=== PATIENT | female | born 1945 | race Caucasian/White ===

== ENCOUNTER 2016-07-12 12:50 | Inpatient (IN) | payer MEDICARE, OTHER ==
[~2016-07-12] VITALS: Ht 165.1 cm; Wt 83.0 kg
--- NOTE | 2016-07-12 13:00 | NUR ---
BPA FROM [facility]: POSSIBLE GI BLEED. SEND BY DR TIJERINA FOR EVAL. VENT/TRACH DEPENDENT. PT AOOX3. NOTED WITH GTUBE. NAD NOTED. NO ACTIVE BLEEDING NOTED. SEEN BY ANALYTICAL CONSULTANT FOR EVAL. SAFETY AND COMFORT MEASURES PROVIDED. WILL MONITOR.
[2016-07-12 13:08] LABS: BASOPHILS % (AUTO) 0.3 % (0.0-2.0); EOSINOPHILS # (AUTO) 0.2 /CMM (0.0-0.7); HEMATOCRIT 27 % (33-45); LYMPHOCYTES # (AUTO) 1.4 /CMM (0.8-4.8); LYMPHOCYTES % (AUTO) 16.4 % (20.0-44.0); MEAN CORPUSCULAR HEMOGLOBIN 30 PG (26.0-33.0); MEAN CORPUSCULAR HGB CONC 33 g/dl (31.0-36.0); MEAN CORPUSCULAR VOLUME 90 fL (82-100); MONOCYTES # (AUTO) 0.6 /CMM (0.1-1.30); MONOCYTES % (AUTO) 7.5 % (2.0-12.0); NEUTROPHILS # (AUTO) 6.1 /CMM (1.8-8.9); NEUTROPHILS % (AUTO) 73.8 % (43.0-81.0); PLATELET COUNT (AUTO) 235 /CMM (150-450); RDW COEFFICIENT OF VARIATION 17.9 (11.5-15.0); RED BLOOD CELL COUNT(AUTO) 3.05 MIL/uL (4.0-5.2); WHITE BLOOD COUNT (AUTO) 8.3 K/uL (4.3-11.0)
[2016-07-12 13:19] LABS: CALCIUM, SERUM 8.4 mg/dL (8.5-10.1); CREATININE 1.8 mg/dL (0.6-1.3); POTASSIUM 3.8 mmol/L (3.5-5.1)
[2016-07-12 13:21] VITALS: BP 109/54
[2016-07-12 13:22] LABS: INR 1.11 (0.87-1.13); PROTHROMBIN TIME 11.6 SECS (9.5-12.7)
--- NOTE | 2016-07-12 14:12 | NUR ---
PAGED INTERNAL CONTROLS ANALYST DR AL TIJERINA
[2016-07-12] MEDS ORDERED: PIPERACILLIN /TAZOBACTAM 3.375 G in IV D5W 50 ML IV ONE (15:00)
[2016-07-12] MEDS ORDERED: VANCOMYCIN 1 GM in IV D5W 250 ML IV ONE (15:00)
--- NOTE | 2016-07-12 15:03 | NUR ---
ARON KHAN ON THE PHONE WITH DR LORENA ENAMORADO
--- NOTE | 2016-07-12 15:45 | NUR ---
REPORT GIVEN TO VIVIEN GALLEGO FOR PORFIRIO
[2016-07-12] MEDS ORDERED: IV SET PRIMARY PUMP SET 1 EA INFUS.SET MC ONE (15:58)
[2016-07-12 16:00] VITALS: BP 150/67
[2016-07-12] MEDS ORDERED: NA P133E RC (16:22)
[2016-07-12] MEDS ORDERED: LOPE2TAB57 GT (16:22)
[2016-07-12] MEDS ORDERED: HYDR-4075 GT (16:22)
[2016-07-12] MEDS ORDERED: AMIO100T4 GT (16:22)
[2016-07-12] MEDS ORDERED: BUME1TAB4 GT (16:22)
[2016-07-12] MEDS ORDERED: BISA10SU8 RC (16:22)
[2016-07-12] MEDS ORDERED: CHOL4PAC2 GT (16:22)
[2016-07-12] MEDS ORDERED: LANS30CA56 GT (16:22)
[2016-07-12] MEDS ORDERED: METO25TA20 GT (16:22)
[2016-07-12] MEDS ORDERED: IPRA3AMP IH (16:22)
[2016-07-12] MEDS ORDERED: ISOS10TA2 GT (16:22)
[2016-07-12] MEDS ORDERED: LACT1TAB25 GT (16:22)
[2016-07-12] MEDS ORDERED: FERR-58 GT (16:22)
[2016-07-12] MEDS ORDERED: LINA5TAB GT (16:22)
[2016-07-12] MEDS ORDERED: ATOR40TA GT (16:22)
[2016-07-12] MEDS ORDERED: MAGN400O6 GT (16:34)
[2016-07-12] MEDS ORDERED: ENOX40DI SQ (16:34)
[2016-07-12] MEDS ORDERED: INSU100V11 SQ (16:34)
--- NOTE | 2016-07-12 16:35 | NUR ---
TIRE REBUILDER NOTES RECEIVED PT FROM E.R. STAFF, ACCOMPANIED BY RT, AWAKE, ALERT AND ORIENTED, NO COMPLAINT OF PAIN, VENT IN PLACE, NOT IN DISTRESS, ASSISTED TO BED, MADE COMFORTABLE, DENIES PAIN, GT IN PLACE, NO BLEEDING OR S/S OF INFECTION NOTED TO SITE, ADMISSION ORDERS NOTED AND CARRIED OUT, ROOM SET UP ORIENTATION PROVIDED TO PT, UNDERSTOOD INSTRUCTIONS, PM CARE RENDERED.
[2016-07-12] MEDS ORDERED: CLOP75TA2 GT (16:36)
[2016-07-12] MEDS ORDERED: ONDA-25 GT (16:36)
[2016-07-12] MEDS ORDERED: FOLI0.8T23 GT (16:40)
[2016-07-12] MEDS ORDERED: SERT25TA5 GT (16:40)
[2016-07-12] MEDS ORDERED: ACET325T53 GT (16:41)
[2016-07-12] MEDS ORDERED: DEXTROSE 50%-WATER 50 ML DISP.SYRIN IV PRN ×2 (18:30→19:30)
[2016-07-12] MEDS ORDERED: LOPERAMIDE HCL (2 MG CAP) 2 MG CAPSULE PO PRN (18:30)
[2016-07-12] MEDS ORDERED: MAGNESIUM HYDROXIDE 30 ML UDC GT PRN (18:30)
[2016-07-12] MEDS ORDERED: ACETAMINOPHEN 325 MG TABLET PO PRN (18:30)
[2016-07-12] MEDS ORDERED: NA PHOS,M-B/NA PHOS,DI-BA 1 EA ENEMA RC PRN (18:30)
[2016-07-12] MEDS ORDERED: BISACODYL SUPP (10 MG) 10 MG/SUPP.RECT SUPP.RECT RC PRN (18:30)
--- NOTE | 2016-07-12 18:52 | NUR ---
CASING CLEANER NOTES PT IN BED, RESTING, NOT IN PAIN OR DISTRESS, VENT IN PLACE, NO COUGHING OR CONGESTION, CALL LIGHT WITHIN REACH, KEPT COMFORTABLE AND LIFTS AND CRANES INSPECTOR BED.
[2016-07-12] MEDS ORDERED: ONDANSETRON 4 MG TAB.RAPDIS GT PRN (19:00)
[2016-07-12] MEDS ORDERED: Z GUARD REMEDY 4 OZ OINT TP PRN (19:00)
--- NOTE | 2016-07-12 19:10 | NUR ---
RN OPEN NOTES RECEIVED PATIENT AWAKE IN BED WITH AT BEDSIDE. A/O X3. NO SIGNS OF DISTRESS OR DISCOMFORT. ON MECHANICAL VENT WITH SETTINGS ORDERED. ON TELE MONITORING WITH SR W/ BBB HR 71 NOTED. GTUBE INTACT, NO SIGNS OF INFECTION OR BLEEDING. IV ACCESS IN R WRIST, PATENT AND INTACT. NO SIGNS OF REDNESS OR INFILTRATION. BED IN LOW LOCKED POSITION WITH SIDE RAILS X2. CALL LIGHT WITHIN REACH. WILL CONTINUE TO MONITOR. Addendum: 07/12/16 at 2053 by LOTUS CARUSO RN HAS F/C PATENT AND INTACT WITH CLEAR YELLOW FLUID NOTED.
[2016-07-12] MEDS ORDERED: INSULIN REGULAR, HUMAN 100 UNIT/ML 3 ML VIAL SQ PRN (19:30)
[2016-07-12] MEDS: ALBUTEROL FS 2.5 MG/3 ML VIAL.NEB NEB SCH (19:48)
[2016-07-12] MEDS: IPRATROPIUM NEB FS 0.5 MG/2.5 ML AMPUL.NEB NEB SCH (19:48)
[2016-07-12 20:00] VITALS: BP 119/69
[2016-07-12] MEDS ORDERED: ENOXAPARIN SODIUM 40 MG/0.4 ML DISP.SYRIN SQ SCH (21:00)
[2016-07-12] MEDS ORDERED: BLOOD SUGAR DIAGNOSTIC 1 EACH STRIP IN SCH (21:00)
[2016-07-12] MEDS: ATORVASTATIN 40 MG TABLET GT SCH (22:00)
[2016-07-12] MEDS: BLOOD SUGAR DIAGNOSTIC 1 EACH STRIP IN SCH (23:21)
[2016-07-13] VITALS (37 sets, daily range): BP systolic 82–155; BP diastolic 15–101
[2016-07-13] MEDS: IPRATROPIUM NEB FS 0.5 MG/2.5 ML AMPUL.NEB NEB SCH ×4 (01:14→20:07)
[2016-07-13] MEDS: ALBUTEROL FS 2.5 MG/3 ML VIAL.NEB NEB SCH ×4 (01:14→20:06)
--- NOTE | 2016-07-13 04:10 | NUR ---
RN NOTES RT IN ROOM TO EVALUATE PATIENT CONDITION. PATIENT PRESENTS WITH DE-SATURATION AND VERY DIAPHORETIC DESPITE SUCTIONING. BS CHECKED AND IS NOT HYPOGYLCEMIC BS 183. WILL CONTINUE TO MONITOR.
--- NOTE | 2016-07-13 04:36 | NUR ---
RN NOTES ELECTRONICS ASSEMBLER AND TESTER CALLED DUE TO UN-IMPROVED PATIENT CONDITION. PATIENT WAS HAVING LOW O2 SATURATION AND DIAPHORETIC.
[2016-07-13 04:51] LABS: ABG BASE EXCESS -5.9 mmol/L; ABG OXYGEN SATURATION 82.3 % (92.0-98.5); ABG PH 7.099 (7.350-7.450); ABG PO2 62.9 mmHg (75.0-100.0); AaDO2 90.2 mmHg; COHb 1.2 % (0.5-1.5); MetHb 0.8 % (0.0-1.5); O2Hb 80.7 % (94.0-97.0); PEEP,BG 5 cm H2O; SITE, ABG Right Radial; VENT MODE, BG SIMV4; VT, ABG 450 mL
--- NOTE | 2016-07-13 05:00 | NUR ---
RN NOTES RECEIVED REPORT FROM [facility] LASHONDA GAUTAM IN REGARDS TO THE PATIENT'S TRANSFER AND CONTINUITY OF CARE. PATIENT WAS A RAPID RESPONSE FROM [facility].
--- NOTE | 2016-07-13 05:02 | NUR ---
RN NOTES PATIENT TRANSFERRED TO ICU. GAVE REPORT TO NIDIA GALLEGO FOR PORFIRIO.
--- NOTE | 2016-07-13 05:05 | NUR ---
RN NOTES PT ARRIVED IN THE UNIT, NON-VERBAL, A/O X3, ABLE TO MOUTH WORDS. PT IS ON VENT, NOW WITH SETTINGS OF AC 18, TV 450, 100% FIO2, PEEP 5, SATURATING WELL. CURRENTLY STACH ON THE MONITOR, HR 110-120'S. PT HAS A SWARTZ INTACT. GTUBE IS CLAMPED. RIGHT WRIST 20G SL FLUSHED AND PATENT, NO S/S OF INFILTRATION/INFECTION, DRESSING CDI. SKIN CHECK DONE, PICS HAVE ALREADY BEEN TAKEN UPON ADMISSION IN 3WEST. BED LOW AND LOCKED, SIDERAILS UP, CALL LIGHT WITHIN REACH. WILL MONITOR
[2016-07-13] MEDS: BLOOD SUGAR DIAGNOSTIC 1 EACH STRIP IN SCH ×4 (05:42→23:35)
[2016-07-13] MEDS: INSULIN REGULAR, HUMAN 100 UNIT/ML 3 ML VIAL SQ PRN ×3 (05:44→18:04)
--- NOTE | 2016-07-13 06:30 | NUR ---
RN CLOSING NOTES PT REMAINS STABLE OF THE MOMENT. AM CARE PROVIDED. WILL ENDORSE CONTINUITY OF CARE TO AM RN
[2016-07-13] MEDS ORDERED: INSULIN LISPRO/ASPART 100 UNIT/ML CARTRIDGE SQ PRN (07:30)
[2016-07-13 08:00] LABS: BASOPHILS % (AUTO) 0.2 % (0.0-2.0); EOSINOPHILS % (AUTO) 0.1 % (0.0-6.0); HEMATOCRIT 36 % (33-45); HEMOGLOBIN 11.2 g/dL (11.5-14.8); LYMPHOCYTES % (AUTO) 8.9 % (20.0-44.0); MEAN CORPUSCULAR HEMOGLOBIN 29 PG (26.0-33.0); MEAN CORPUSCULAR HGB CONC 32 g/dl (31.0-36.0); MEAN CORPUSCULAR VOLUME 94 fL (82-100); MONOCYTES # (AUTO) 0.5 /CMM (0.1-1.30); MONOCYTES % (AUTO) 2.1 % (2.0-12.0); NEUTROPHILS % (AUTO) 88.7 % (43.0-81.0); PLATELET COUNT (AUTO) 376 /CMM (150-450); RDW COEFFICIENT OF VARIATION 18.9 (11.5-15.0); RED BLOOD CELL COUNT(AUTO) 3.81 MIL/uL (4.0-5.2); WHITE BLOOD COUNT (AUTO) 22.5 K/uL (4.3-11.0)
--- NOTE | 2016-07-13 08:00 | NUR ---
MULTI TOWNSHIP ASSESSOR NOTE: RECEIVED PATIENT IN BED, ALERT AND ORIENTED X2 NONVERBAL, ABLE TO MAKE NEEDS KNOWN. ON VENT VIA SHILEY 6XLT AC 18 [id number] 100% PEEP OF 5. PATIENT COMPLAINING OF TIGHTNESS IN NECK AREA, PATIENT TURNED AND REPOSITIONED FOR COMFORT. NOTED TO BE DIAPHORETIC, TACHYPNEIC AND TACHYCARDIC. TEMP NOTED TO BE 98.4, HR 92 SBP 130. GTUBE NOTED TO BE CLAMPED, PINK SECRETIONS NOTED. FLUSHED. SWARTZ DRAINING TO GRAVITY. PATIENT NOTED WITH SACRAL SKIN ISSUES, IV NOTED TO BE OUT, TIP INTACT, PRESSURE PLACED TO MAINTAIN BLEEDING. NEW IV PLACED IN RIGHT WRIST 22G HL. LABS DRAWN AT THIS TIME. NO DISTRESS NOTED. VS STABLE. SAFETY MAINTAINED, CALL LIGHT WITHIN REACH AND ONGOING MONITORING.
[2016-07-13 08:31] LABS: CALCIUM, SERUM 8.7 mg/dL (8.5-10.1); MAGNESIUM 1.5 mg/dL (1.8-2.4); POTASSIUM 3.4 mmol/L (3.5-5.1)
--- NOTE | 2016-07-13 08:49 | NUR ---
PER NURSE АНДРЕЙ CONSENT SIGN, NO BLOOD THINNERS WERE GIVEN. NURSE IS AWARE PROCEDURE WILL BE DONE IN AFTERNOON DUE TO BUSY SCHEDULE WITH ER AND A SCHEDULED PROCEDURE IN RAD DEPARTMENT
[2016-07-13] MEDS ORDERED: METOPROLOL TARTRATE 25 MG TABLET GT SCH (09:00)
[2016-07-13] MEDS ORDERED: ISOSORBIDE DINITRATE (10MG) 10 MG TABLET GT SCH (09:00)
--- NOTE | 2016-07-13 09:33 | NUR ---
WOUND CARE CONSULT: PATIENT SEEN AND LIMITED SKIN ASSESSMENT DONE. ACCORDING TO RT AND NURSING STAFF, PATIENT HAS HAD A RAPID RESPONSE THIS MORNING AND CANNOT BE TURNED AND REPOSITIONED AT THIS TIME DUE TO PATIENT STILL UNSTABLE. TRACH VENT DEPENDENT PATIENT, HAS GT AN F/C, INCONTINENT OF STOOLS, YADIEL 15, ON TAI ISOFLEX JOLANTA BED. SEE TODAY'S SKIN ASSESSMENT IN PCS ALONG WITH RECOMMENDATIONS. RECOMMEND MOISTURE PROTECTION WITH Z GUARD ORDERED. TURN AND REPOSITION EVERY 2 HRS PATIENT CONDITION PERMITS, OFFLOAD BOTH HEELS. ALL DISCUSSED WITH NURSING STAFF. WOUND NURSE WILL FOLLOW UP AT A LATER TIME WHEN PATIENT CONDITION PERMITS. MD IN AGREEMENT WITH PLAN OF CARE. Addendum: 07/13/16 at 0939 by NATAN SCHULTZ WNDNU Amended: Links added.
[2016-07-13 09:45] LABS: ABG OXYGEN SATURATION 89.7 % (92.0-98.5); ABG PH 7.303 (7.350-7.450); ABG PO2 62.4 mmHg (75.0-100.0); AaDO2 309.3 mmHg; COHb 0.1 % (0.5-1.5); MetHb 0.9 % (0.0-1.5); O2Hb 88.8 % (94.0-97.0); PEEP,BG 5 cm H2O; SITE, ABG Left Radial; VT, ABG 450 mL
[2016-07-13] MEDS ORDERED: Z GUARD REMEDY 2 OZ OINT TP PRN (10:00)
[2016-07-13] MEDS: LACTOBACILLUS RHAMNOSUS GG 1 EACH CAP.SPRINK GT SCH (10:01)
[2016-07-13] MEDS: SERTRALINE HCL 25 MG TABLET GT SCH (10:01)
[2016-07-13] MEDS: BUMETANIDE (1 MG) 1 MG TABLET GT SCH ×2 (10:02→17:58)
[2016-07-13] MEDS: FERROUS SULFATE (325 MG) 325 MG/TAB TABLET GT SCH (10:02)
[2016-07-13] MEDS: LINAGLIPTIN 5 MG TABLET GT SCH (10:02)
[2016-07-13] MEDS: VIT B CMPLX 3/FA/VIT C/BIOTIN 1 TAB TABLET GT SCH (10:03)
[2016-07-13] MEDS: AMIODARONE HCL 200 MG TABLET GT SCH (10:03)
[2016-07-13] MEDS: PANTOPRAZOLE 40 MG/PACK PACK GT SCH (10:03)
[2016-07-13] MEDS: CHOLESTYRAMINE/ASPARTAME 4 G/PKT PACKET GT SCH (10:03)
[2016-07-13] MEDS: hydrALAZINE HCL 10 MG TABLET GT SCH ×2 (10:04→13:23)
[2016-07-13] MEDS: Z GUARD REMEDY 2 OZ OINT TP SCH ×2 (10:04→17:58)
[2016-07-13] MEDS ORDERED: POTASSIUM CL. PREMIX PERIPHER. 50 ML IV SCH (10:30)
--- NOTE | 2016-07-13 10:30 | NUR ---
LEAVE COORDINATOR NOTE: PATIENT'S NOTED WITH SWARTZ FROM [facility], AT BEDSIDE STATES THAT SWARTZ IS FROM MANY MONTHS AGO, SWARTZ REMOVED, AREA CLEANED, ASEPTIC TECHNIQUE OBSERVED AND NEW SWARTZ INSERTED. PATIENT TOLERATED PROCEDURE WELL HOWEVER REQUIRES TIME TO REST DUE TO SOB. ONGOING MONITORING
[2016-07-13] MEDS ORDERED: IV SET PRIMARY PUMP SET 1 EA INFUS.SET MC ONE ×2 (10:34→11:09)
--- NOTE | 2016-07-13 10:57 | NUR ---
ROPEWALK ROPE MAKER NOTE: DR. PATTERSON AT BEDSIDE, RECEIVED ORDER FOR VANCOMYCIN 1G ONE TIME AND ZOSYN FOR PHARMACY TO DOSE. ORDERS VERIFIED AND WILL CARRY OUT. ONGOING MONITORING
[2016-07-13] MEDS ORDERED: Magnesium 1GM/D5W 100ML PREMIX 100 ML IV SCH (11:00)
[2016-07-13] MEDS ORDERED: SECONDARY IV SET 1 EA INFUS.SET MC ONE (11:10)
[2016-07-13] MEDS ORDERED: IV NS 0.9% 500 ML IV ONE (11:10)
[2016-07-13] MEDS ORDERED: ACETAMINOPHEN 650 MG/20.3 ML UDC PO PRN (11:30)
[2016-07-13] MEDS ORDERED: LOPERAMIDE HCL UDC(2 MG/10 ML) 2 MG/10 ML UDC GT PRN (11:30)
--- NOTE | 2016-07-13 12:00 | NUR ---
MILLER SUPERVISOR NOTE: MIDLINE PLACED IN LAC BY PICC LINE NURSE JOHNNY GALVAN. PATIENT TOLERATED PROCEDURE WELL. ONGOING MONITORING
[2016-07-13] MEDS: PIPERACILLIN /TAZOBACTAM 2.25 G in IV D5W 50 ML IV SCH ×3 (13:24→23:35)
[2016-07-13] MEDS ORDERED: VANCOMYCIN 1 GM in IV D5W 250 ML IV ONE (14:00)
--- NOTE | 2016-07-13 14:00 | NUR ---
DESIGNER ARCHITECT NOTE: RIGHT SIDED US GUIDED THORACENTESIS DONE AT BEDSIDE. 860ML REMOVED, PLUERAL FLUID SENT TO LAB FOR TESTING PER DR. PATTERSON'S ORDERS. PATIENT TOLERATED PROCEDURE WELL. ONGOING MONITORING.
[2016-07-13] MEDS ORDERED: IV NS 0.9% 500 ML BAG IV ONE (15:00)
--- NOTE | 2016-07-13 15:30 | NUR ---
RESEARCH PROJECT MANAGER NOTE: PATIENT SBP NOTED IN 80'S, DR. ENAMORADO MADE AWARE AND RECEIVED ORDERS FOR 500ML IVP BOLUS OF NS. BOLUS GIVEN. WILL CONTINUE TO MONITOR SBP. ONGOING MONITORING.
[2016-07-13] MEDS: CLOPIDOGREL BISULFATE 75 MG TABLET GT SCH (15:54)
--- NOTE | 2016-07-13 16:37 | NUR ---
ASSISTANT PRESSMAN NOTE: RECEIVED CRITICAL LAB CALL FOR TROPONIN OF 1.909, CALL MADE TO DR. ENAMORADO AND RECEIVED TELEPHONE ORDER TO CALL DR. GREGG FOR CONSULT. READ BACK AND VERIFIED, DR. GREGG'S OFFICE CALLED AND REQUEST MADE FOR CONSULT. ONGOING MONITORING.
[2016-07-13] MEDS ORDERED: FEE PK DOSING 1 MIN EA MC ONE (17:34)
--- NOTE | 2016-07-13 18:56 | NUR ---
MANAGER PEOPLE NOTE: PATIENT RESTING COMFORTABLY IN BED ALERT AND ORIENTED X 2. SR ON TELE MONITOR, ON VENT TOLERATING SETTINGS WELL. NO DISTRESS NOTED, DR. GREGG WAS AT BEDSIDE FOR CONSULT, ECHO DONE. GTUBE PATENT AND INTACT, CLAMPED. SWARTZ DRAINING MINIMAL URINE TO GRAVITY. IV'S PATENT AND INTACT. PATIENT NOTED WITH DIARRHEA, CLEANED AND TURNED AND REPOSITIONED AND EXTREMITIES OFFLOADED. SKIN CARE RENDERED. VS STABLE AT THIS TIME. PATIENT VERBALIZES THAT SHE WANTS WATER WHEN INFORMED THAT SHE IS NPO SHE STATES SHE WANTS TO , PATIENT INFORMED TO TALK TO FAMILY REGARDING DNR/DNI STATUS. ALL MEDS GIVEN ADMINISTERED, ALL NEEDS MET, SAFETY MAINTAINED. ONGOING MONITORING
--- NOTE | 2016-07-13 20:00 | NUR ---
MOSS GATHERER OPEN SKIN ON SACRUM NOTED , WOUND CARE CONSULTED AND PIC TAKEN.
--- NOTE | 2016-07-13 21:49 | NUR ---
RN NEW GRAD CALLED PHARMACIST JANA REGARDING HUMALOG/NOVALOG ORDER FORCLARIFICATIOON OF ORDER . PER PHARMACIST THIS INSULIN IS NOT NEEDED BECAUSE PT IS ALREADY ON REGULAR INSULIN . WILL DC INSULIN. LOVENOX 40MG RETURNED TO [facility] AND ORDER CHANGED BY PHARMACIST IN ORDER FOR [facility] TO DISPENSE CORRECT DOSE OF 30 MG.
[2016-07-13] MEDS: ATORVASTATIN 40 MG TABLET GT SCH (21:58)
[2016-07-13] MEDS: ENOXAPARIN SODIUM 30 MG/0.3 ML DISP.SYRIN SQ SCH (22:05)
[2016-07-14] VITALS (55 sets, daily range): BP systolic 91–123; BP diastolic 33–84
[2016-07-14] MEDS: ALBUTEROL FS 2.5 MG/3 ML VIAL.NEB NEB SCH ×4 (01:11→19:57)
[2016-07-14] MEDS: IPRATROPIUM NEB FS 0.5 MG/2.5 ML AMPUL.NEB NEB SCH ×4 (01:11→19:57)
[2016-07-14 05:22] LABS: CALCIUM, SERUM 8.7 mg/dL (8.5-10.1); CREATININE 1.8 mg/dL (0.6-1.3); MAGNESIUM 1.5 mg/dL (1.8-2.4); PHOSPHORUS 3.7 mg/dL (2.5-4.9); POTASSIUM 3.8 mmol/L (3.5-5.1)
[2016-07-14 05:47] LABS: BASOPHILS % (AUTO) 0.2 % (0.0-2.0); EOSINOPHILS # (AUTO) 0.1 /CMM (0.0-0.7); EOSINOPHILS % (AUTO) 0.4 % (0.0-6.0); HEMATOCRIT 26 % (33-45); HEMOGLOBIN 8.5 g/dL (11.5-14.8); LYMPHOCYTES # (AUTO) 1.6 /CMM (0.8-4.8); LYMPHOCYTES % (AUTO) 14.6 % (20.0-44.0); MEAN CORPUSCULAR HEMOGLOBIN 29 PG (26.0-33.0); MEAN CORPUSCULAR HGB CONC 32 g/dl (31.0-36.0); MEAN CORPUSCULAR VOLUME 90 fL (82-100); MONOCYTES # (AUTO) 0.7 /CMM (0.1-1.30); MONOCYTES % (AUTO) 6.6 % (2.0-12.0); NEUTROPHILS # (AUTO) 8.7 /CMM (1.8-8.9); NEUTROPHILS % (AUTO) 78.2 % (43.0-81.0); PLATELET COUNT (AUTO) 225 /CMM (150-450); RDW COEFFICIENT OF VARIATION 19.3 (11.5-15.0); RED BLOOD CELL COUNT(AUTO) 2.93 MIL/uL (4.0-5.2); WHITE BLOOD COUNT (AUTO) 11.2 K/uL (4.3-11.0)
[2016-07-14] MEDS: PIPERACILLIN /TAZOBACTAM 2.25 G in IV D5W 50 ML IV SCH ×4 (06:14→23:03)
[2016-07-14] MEDS: BLOOD SUGAR DIAGNOSTIC 1 EACH STRIP IN SCH ×4 (06:14→23:04)
--- NOTE | 2016-07-14 07:16 | NUR ---
YARD PERSON NOTES RECEIVED PATIENT AOX3 DANISH SPEAKING BUT ABLE TO UNDERSTAND YI , ABLE TO MAKE NEEDS KNOWN , NOT IN ACUTE DISTRESS , DENIES SOB AND DISCOMFORT AT THIS TIME , SPO2 OF 100% VIA MECHANICAL VENTILATOR SETTINGS ORDERED , TRACH OF SHILEY @ [address] SR 85 ON BEDSIDE MONITOR , GT PATENT AND INTACT NO BLEEDING NOTED CLAMPED , FC DRAINING VIA GRAVITY WITH CLEAR YELLOW URINE , ON [place] BED , IV OF R WRIST #22 AND R AC MIDLINE PATENT AND INTACT WITH N @ TKO , ALL NEED ATTENDED , BED ON LOW AND LOCKED POSITION , SIDE RAILS X2 CALL LIGHT WITHIN REACH HOB @ 35 , WILL CONTINUE TO MONITOR
--- NOTE | 2016-07-14 07:29 | NUR ---
WHARF BUILDER NO RESP DISTRESS THROUGHOUT THE NIGHT. LOW URINE OUTPUT NOTED. REPORT GIVEN TO AM NURSE
--- NOTE | 2016-07-14 07:39 | NUR ---
RT PT RECEIVED TRACHED WITH A SHILEY 6 XLT ON THE VENT WITH NOTED SETTINGS. PT IS AWAKE AND ALERT. VENT ALARMS ARE SET AND AUDIBLE WITH BVM BY BEDSIDE. AUTO TUNE UP MECHANIC CUFF PRESSURE NOTED. VENT IS PLUGGED INTO RED OUTLET. SX SMALL THICK YELLOW SECRETIONS. NO RESPIRATORY DISTRESS NOTED AT THIS TIME, WILL CONTINUE TO MONITOR. Addendum: 07/14/16 at 0953 by YOLANDA LAMA RT Amended: Links added.
--- NOTE | 2016-07-14 08:00 | NUR ---
WOUND CARE CONSULT FOLLOW UP FOR SKIN ASSESSMENT OF THE BACK WHICH WAS NOT PERFORMED YESTERDAY DUE TO PATIENT WAS UNSTABLE. SEE TODAY'S SKIN ASSESSMENT ALONG WITH RECOMMENDATIONS. CONTINUE SKIN PROTECTION AND PRESSURE PREVENTION MEASURES ORDERED. ALL DISCUSSED WITH NURSING STAFF. IN AGREEMENT WITH PLAN OF CARE. Addendum: 07/14/16 at 0802 by NATAN SCHULTZ WNDNU Amended: Links added.
[2016-07-14] MEDS: AMIODARONE HCL 200 MG TABLET GT SCH (08:24)
[2016-07-14] MEDS: SERTRALINE HCL 25 MG TABLET GT SCH (08:25)
[2016-07-14] MEDS: LACTOBACILLUS RHAMNOSUS GG 1 EACH CAP.SPRINK GT SCH (08:25)
[2016-07-14] MEDS: CHOLESTYRAMINE/ASPARTAME 4 G/PKT PACKET GT SCH (08:25)
[2016-07-14] MEDS: VIT B CMPLX 3/FA/VIT C/BIOTIN 1 TAB TABLET GT SCH (08:25)
[2016-07-14] MEDS: CLOPIDOGREL BISULFATE 75 MG TABLET GT SCH (08:25)
[2016-07-14] MEDS: BUMETANIDE (1 MG) 1 MG TABLET GT SCH ×2 (08:25→15:48)
[2016-07-14] MEDS: PANTOPRAZOLE 40 MG/PACK PACK GT SCH (08:25)
[2016-07-14] MEDS: FERROUS SULFATE (325 MG) 325 MG/TAB TABLET GT SCH (08:25)
[2016-07-14] MEDS: LINAGLIPTIN 5 MG TABLET GT SCH (08:26)
[2016-07-14] MEDS: HYDROGEL DRESSING 90 GM TUBE TP SCH (08:26)
[2016-07-14] MEDS: Z GUARD REMEDY 2 OZ OINT TP SCH ×2 (08:26→16:53)
[2016-07-14 09:10] LABS: ABG BASE EXCESS -2.5 mmol/L; ABG OXYGEN SATURATION 97.1 % (92.0-98.5); ABG PCO2 34.9 mmHg (35.0-45.0); ABG PH 7.412 (7.350-7.450); ABG PO2 105.3 mmHg (75.0-100.0); AaDO2 211.9 mmHg; COHb 0.8 % (0.5-1.5); MetHb 1.2 % (0.0-1.5); O2Hb 95.2 % (94.0-97.0); SITE, ABG Left Radial; VENT MODE, BG AC 18 450 50% +5
[2016-07-14] MEDS ORDERED: BUMETANIDE INJ 6 MG in IV NS 0.9% 36 ML IV ONE (11:00)
[2016-07-14] MEDS ORDERED: Magnesium 1GM/D5W 100ML PREMIX 100 ML IV SCH (11:20)
--- NOTE | 2016-07-14 11:30 | NUR ---
MACHINE ADJUSTER LEADER CASE TRIM NOTES DR ENAMORADO AT BEDSIDE , NOTIFIED PT OFF PRESSORS WITH STABLE BP OF 105/55 , TOLERATING CURRENT VENTILATOR SETTINGS WITH SPO2 OF 100% , URINE OUTPUT LAST NIGHT FOR 12 HOURS IS 250 ML , PENDING TRORACENTESIS OF LEFT LUNG PT RECEIVED PLAVIX 75MG THIS AM , AWARE , .
[2016-07-14] MEDS ORDERED: IV SET PRIMARY PUMP SET 1 EA INFUS.SET MC ONE ×2 (11:32→20:33)
--- NOTE | 2016-07-14 11:54 | NUR ---
DRILL SHARPENER NOTES DR WALLACE AT BEDSIDE , NOTIFIED PT TOLERATING VENT SETTINGS ORDERED ,DISCUSSED AM LABS , CHEST XRAY ,AND ABG , AWARE , THORACENTESIS OF LEFT LUNG HELD PT RECEIVED PLAVIX 25MG THIS MORNING , AWARE
[2016-07-14] MEDS: ACETYLCYSTEINE 10% SOLN 400 MG/4 ML VIAL NEB SCH ×2 (13:07→19:57)
--- NOTE | 2016-07-14 14:51 | NUR ---
ULTRASOUND GUIDED THORACENTESIS ON HOLD DUE TO PATIENT RECEIVED PLAVIX THIS MORNING
--- NOTE | 2016-07-14 15:48 | NUR ---
SPEECH PATHOLOGIST NOTES BUMEX 1MG NON ADMIN , PT IS ON BUMEX DRIP @ 10ML/HR .
[2016-07-14] MEDS ORDERED: RENAL NOVASOURCE 1,000 ML BOTTLE GT PRN ×2 (16:00)
[2016-07-14] MEDS ORDERED: SECONDARY IV SET 1 EA INFUS.SET MC ONE (16:25)
[2016-07-14] MEDS: VANCOMYCIN 0.75 GM in IV D5W 250 ML IV SCH (16:53)
[2016-07-14] MEDS: GLYTROL 1,000 ML BAG GT PRN (16:53)
--- NOTE | 2016-07-14 17:56 | NUR ---
SINGH GALLEGO IS AWARE PROCEDURE CAN NOT BE DONE WITH IN 5 DAYS OF GIVING PLAVIX. PER DR. BRIZUELA OK TO BE DONE EARLIEST Sunday07/17/16 OR UNTIL Sunday07/19/16
[2016-07-14] MEDS: INSULIN REGULAR, HUMAN 100 UNIT/ML 3 ML VIAL SQ PRN ×2 (18:42→23:03)
--- NOTE | 2016-07-14 19:30 | NUR ---
RN:ICU: PT RECEIVED IN BED ON VENT. PT ALERT AND ABLE TO FOLLOW COMMANDS. PT WAS TO RECEIVE LEFT SIDED THORACENTESIS FOR PLEURAL EFFUSION BUT RECEIVED PLAVIX SO PROCEDURE WAS RESCHEDULED TO AM. PT TOLERATING TF. NO ACUTE DISTRESS NOTED. VSS. WILL CONTINUE TO MONITOR CLOSELY.
[2016-07-14] MEDS ORDERED: IV NS 0.9% 250 ML IV ONE (20:34)
[2016-07-14] MEDS: ENOXAPARIN SODIUM 30 MG/0.3 ML DISP.SYRIN SQ SCH (20:48)
[2016-07-14] MEDS: ATORVASTATIN 40 MG TABLET GT SCH (21:04)
[2016-07-15] VITALS (55 sets, daily range): BP systolic 87–133; BP diastolic 36–85
[2016-07-15] MEDS: ALBUTEROL FS 2.5 MG/3 ML VIAL.NEB NEB SCH ×4 (01:01→19:58)
[2016-07-15] MEDS: ACETYLCYSTEINE 10% SOLN 400 MG/4 ML VIAL NEB SCH ×4 (01:01→19:58)
[2016-07-15] MEDS: IPRATROPIUM NEB FS 0.5 MG/2.5 ML AMPUL.NEB NEB SCH ×4 (01:01→19:58)
--- NOTE | 2016-07-15 01:44 | NUR ---
RN:ICU: PT USING CALL LIGHT TO CALL NURSE COUNTLESS TIMES PER HOUR, REQUESTING ICE AND WATER. PT EDUCATED REGARDING IMPORTANCE TO LIMIT PO INTAKE DUE TO RISK FOR ASPIRATION AND FLUID OVERLOAD. ATTEMPTED TO PROVIDE PT WITH ORAL SWABS TO SATIATE HER THIRST AND LIMIT ABOVE RISKS, BUT PATIENT CONTINUES TO CALL FREQUENTLY AND REQUESTS MORE ICE. ATTEMPTED TO PERFORM OTHER TASKS SUCH REPOSITIONING AND SUCTIONING TO INCREASE PATIENTS COMFORT AND MINIMIZE ANXIETY BUT PATIENT STILL CALLS NURSE FREQUENTLY. ASPIRATION AND FALL PRECAUTIONS IN PLACE. VSS. WILL CONTINUE TO MONITOR CLOSELY.
[2016-07-15 04:39] LABS: BASOPHILS % (AUTO) 0.3 % (0.0-2.0); EOSINOPHILS # (AUTO) 0.2 /CMM (0.0-0.7); EOSINOPHILS % (AUTO) 1.3 % (0.0-6.0); HEMATOCRIT 27 % (33-45); HEMOGLOBIN 8.6 g/dL (11.5-14.8); LYMPHOCYTES # (AUTO) 1.7 /CMM (0.8-4.8); LYMPHOCYTES % (AUTO) 14.3 % (20.0-44.0); MEAN CORPUSCULAR HEMOGLOBIN 29 PG (26.0-33.0); MEAN CORPUSCULAR HGB CONC 32 g/dl (31.0-36.0); MEAN CORPUSCULAR VOLUME 90 fL (82-100); MONOCYTES # (AUTO) 0.9 /CMM (0.1-1.30); MONOCYTES % (AUTO) 7.6 % (2.0-12.0); NEUTROPHILS # (AUTO) 9.1 /CMM (1.8-8.9); NEUTROPHILS % (AUTO) 76.5 % (43.0-81.0); PLATELET COUNT (AUTO) 219 /CMM (150-450); RDW COEFFICIENT OF VARIATION 19.4 (11.5-15.0); RED BLOOD CELL COUNT(AUTO) 2.98 MIL/uL (4.0-5.2); WHITE BLOOD COUNT (AUTO) 11.9 K/uL (4.3-11.0)
[2016-07-15 05:06] LABS: CALCIUM, SERUM 8.4 mg/dL (8.5-10.1); CREATININE 1.9 mg/dL (0.6-1.3); MAGNESIUM 1.3 mg/dL (1.8-2.4); PHOSPHORUS 2.6 mg/dL (2.5-4.9); POTASSIUM 3.2 mmol/L (3.5-5.1)
[2016-07-15] MEDS: PIPERACILLIN /TAZOBACTAM 2.25 G in IV D5W 50 ML IV SCH ×4 (05:06→23:22)
[2016-07-15] MEDS: BLOOD SUGAR DIAGNOSTIC 1 EACH STRIP IN SCH ×4 (05:08→23:21)
[2016-07-15] MEDS: INSULIN REGULAR, HUMAN 100 UNIT/ML 3 ML VIAL SQ PRN ×3 (05:08→17:17)
--- NOTE | 2016-07-15 07:11 | NUR ---
COMMUNITY RESOURCE OFFICER NOTES RECEIVED PATIENT AOX2-3 SPANISH SPEAKING BUT ABLE TO UNDERSTAND [place] , ABLE TO MAKE NEEDS KNOWN , NOT IN ACUTE DISTRESS , DENIES SOB AND DISCOMFORT AT THIS TIME , SPO2 OF 100% VIA MECHANICAL VENTILATOR SETTINGS ORDERED , TRACH OF SHILEY @ [address] SR 75 ON BEDSIDE MONITOR , GT PATENT AND INTACT NO BLEEDING NOTED , GT FEEDING OF GLYTROL @ 40ML/HR TOLERATING WELL WITH NO RESIDUALS NOTED , FC DRAINING VIA GRAVITY WITH CLEAR YELLOW URINE , ON [place] BED , IV OF R AC MIDLINE PATENT AND INTACT WITH NS @ TKO , ALL NEED ATTENDED , BED ON LOW AND LOCKED POSITION , SIDE RAILS X2 CALL LIGHT WITHIN REACH HOB @ 35 , WILL CONTINUE TO MONITOR
[2016-07-15] MEDS: CLOPIDOGREL BISULFATE 75 MG TABLET GT SCH (08:30)
--- NOTE | 2016-07-15 08:30 | NUR ---
SUBWAY REPAIR SUPERVISOR NOTES PLAVIX 75MG HELD FOR POSSIBLE THORACENTESIS
[2016-07-15] MEDS: SERTRALINE HCL 25 MG TABLET GT SCH (08:32)
[2016-07-15] MEDS: BUMETANIDE (1 MG) 1 MG TABLET GT SCH ×2 (08:32→17:18)
[2016-07-15] MEDS: CHOLESTYRAMINE/ASPARTAME 4 G/PKT PACKET GT SCH (08:32)
[2016-07-15] MEDS: VIT B CMPLX 3/FA/VIT C/BIOTIN 1 TAB TABLET GT SCH (08:32)
[2016-07-15] MEDS: FERROUS SULFATE (325 MG) 325 MG/TAB TABLET GT SCH (08:32)
[2016-07-15] MEDS: HYDROGEL DRESSING 90 GM TUBE TP SCH (08:33)
[2016-07-15] MEDS: AMIODARONE HCL 200 MG TABLET GT SCH (08:33)
[2016-07-15] MEDS: LINAGLIPTIN 5 MG TABLET GT SCH (08:33)
[2016-07-15] MEDS: LACTOBACILLUS RHAMNOSUS GG 1 EACH CAP.SPRINK GT SCH (08:33)
[2016-07-15] MEDS: PANTOPRAZOLE 40 MG/PACK PACK GT SCH (08:33)
[2016-07-15] MEDS: Z GUARD REMEDY 2 OZ OINT TP SCH ×2 (08:33→17:18)
--- NOTE | 2016-07-15 09:30 | NUR ---
SERVER SECURITY ADMINISTRATOR NOTES DR HYLTON AT BEDSIDE , NOTIFIED PT STABLE AT THIS TIME SR 78 ON BEDSIDE MONITOR WITH STABLE BP , AFEBRILE , DISCUSSED AM LABS , , TOLERATING CURRENT VENTILATOR SETTINGS WITH NO SIGNS OF DISTRESS , AUSCULTATED CRACKLES THROUGHOUT , S/P BUMEX DRIP TOTAL OF 6MG YESTERDAY , URINE OUTPUT TOTAL OF 400ML FOR 3 HOURS , TOLERATING GT FEEDING , PENDING THORACENTESIS OF THE LEFT LUNG PT IS ON ANTI COAGULATIONS , DISCUSSED CHEST XRAY RESULT , AWARE
[2016-07-15] MEDS ORDERED: IV SET PRIMARY PUMP SET 1 EA INFUS.SET MC ONE (10:22)
[2016-07-15] MEDS: POTASSIUM CL. PREMIX PERIPHER. 50 ML IV SCH ×2 (10:26→11:37)
[2016-07-15] MEDS ORDERED: Magnesium 1GM/D5W 100ML PREMIX 100 ML IV SCH (10:30)
--- NOTE | 2016-07-15 14:14 | NUR ---
ASSISTANT COOK NOTES DR TRUONG AT BEDSIDE , NOTIFIED PT STABLE AT THIS TIME , NOT IN ACUTE DISTRESS , TOLERATING CURRENT VENTILATOR SETTINGS , TOLERATING GT FEEDINGS , PENDING LEFT SIDED THORACENTESIS PT IS ON ANTICOAGULANTS , NOTIFIED PLAVIX 75MG IS HELD THIS MORNING FOR THORACENTESIS PLAN , PER MD OK TO HOLD PLAVIX TEMPORARY , WILL DIURESE PT TODAY AND RE EVALUATE CHEST XRAY PER MD , AFEBRILE , BP 101/55 , SR 75 ON BEDSIDE MONITOR , MD AWARE
--- NOTE | 2016-07-15 14:15 | NUR ---
ENFORCEMENT OFFICER NOTES DR VARGHESE AT BEDSIDE , NOTIFIED PT IS TOLERATING VENTILATOR SETTINGS ORDERED WITH SPO2 OF 100% WITH NO DISTRESS , NOTED CRACKLES VIA AUSCULTATION THROUGHOUT LUNG KEY , URINE OUTPUT OF 300ML CLEAR YELLOW URINE SINCE 0700 , S/P BUMEX OF 6MG YESTERDAY , PENDING L SIDED GUIDED THORACENTESIS PT IS ON ANTICOAGULANTS , DISCUSSED CHEST XRAY RESULT AND LABS , , MD AWARE ORDERED SPUTUM CULTURE ,
[2016-07-15] MEDS ORDERED: BUMETANIDE INJ 0.25 MG/ML VIAL IV ONE (14:30)
[2016-07-15] MEDS ORDERED: SECONDARY IV SET 1 EA INFUS.SET MC ONE (14:52)
[2016-07-15] MEDS: VANCOMYCIN 0.75 GM in IV D5W 250 ML IV SCH (15:00)
[2016-07-15] MEDS: GLYTROL 1,000 ML BAG GT PRN (17:10)
--- NOTE | 2016-07-15 20:00 | NUR ---
SOFTWARE DEVELOPMENT SPECIALIST: RECEIVED PATIENT AOX2-3 WELSH SPEAKING BUT ABLE TO UNDERSTAND [place] , ABLE TO MAKE NEEDS KNOWN , NOT IN ACUTE DISTRESS , DENIES SOB AND DISCOMFORT AT THIS TIME , SPO2 OF 100% VIA MECHANICAL VENTILATOR SETTINGS ORDERED , TRACH OF SHILEY @ [address] SR ON BEDSIDE MONITOR , GT PATENT AND INTACT NO BLEEDING NOTED , GT FEEDING OF GLYTROL @ 40ML/HR TOLERATING WELL WITH NO RESIDUALS NOTED , FC DRAINING VIA GRAVITY WITH CLEAR YELLOW URINE , ON BELLE BED , IV OF R AC MIDLINE PATENT AND INTACT WITH NS @ TKO , ALL NEED ATTENDED , BED ON LOW AND LOCKED POSITION , SIDE RAILS X2 CALL LIGHT WITHIN REACH HOB KEEP MONITOR....
[2016-07-15] MEDS ORDERED: NOREPINEPHRINE 16 MG in IV D5W 500 ML IV PRN (20:30)
[2016-07-15] MEDS: ATORVASTATIN 40 MG TABLET GT SCH (21:23)
[2016-07-15] MEDS: ENOXAPARIN SODIUM 30 MG/0.3 ML DISP.SYRIN SQ SCH (21:23)
[2016-07-15] MEDS ORDERED: IV NS 0.9% 250 ML IV ONE (23:11)
[2016-07-16] VITALS (31 sets, daily range): BP systolic 92–134; BP diastolic 30–74
[2016-07-16] MEDS: ALBUTEROL FS 2.5 MG/3 ML VIAL.NEB NEB SCH ×4 (01:10→20:20)
[2016-07-16] MEDS: ACETYLCYSTEINE 10% SOLN 400 MG/4 ML VIAL NEB SCH ×4 (01:10→20:20)
[2016-07-16] MEDS: IPRATROPIUM NEB FS 0.5 MG/2.5 ML AMPUL.NEB NEB SCH ×4 (01:30→20:20)
[2016-07-16] MEDS: BLOOD SUGAR DIAGNOSTIC 1 EACH STRIP IN SCH ×3 (04:45→17:40)
[2016-07-16] MEDS: INSULIN REGULAR, HUMAN 100 UNIT/ML 3 ML VIAL SQ PRN ×3 (04:49→17:42)
[2016-07-16 05:02] LABS: BASOPHILS % (AUTO) 0.4 % (0.0-2.0); EOSINOPHILS # (AUTO) 0.3 /CMM (0.0-0.7); EOSINOPHILS % (AUTO) 2.6 % (0.0-6.0); HEMATOCRIT 25 % (33-45); HEMOGLOBIN 8.2 g/dL (11.5-14.8); LYMPHOCYTES # (AUTO) 1.9 /CMM (0.8-4.8); LYMPHOCYTES % (AUTO) 19.2 % (20.0-44.0); MEAN CORPUSCULAR HEMOGLOBIN 29 PG (26.0-33.0); MEAN CORPUSCULAR HGB CONC 32 g/dl (31.0-36.0); MEAN CORPUSCULAR VOLUME 90 fL (82-100); MONOCYTES # (AUTO) 0.7 /CMM (0.1-1.30); MONOCYTES % (AUTO) 7.5 % (2.0-12.0); NEUTROPHILS # (AUTO) 6.9 /CMM (1.8-8.9); NEUTROPHILS % (AUTO) 70.3 % (43.0-81.0); PLATELET COUNT (AUTO) 201 /CMM (150-450); RDW COEFFICIENT OF VARIATION 19.1 (11.5-15.0); RED BLOOD CELL COUNT(AUTO) 2.83 MIL/uL (4.0-5.2); WHITE BLOOD COUNT (AUTO) 9.8 K/uL (4.3-11.0)
[2016-07-16] MEDS: PIPERACILLIN /TAZOBACTAM 2.25 G in IV D5W 50 ML IV SCH ×3 (05:11→17:37)
[2016-07-16 05:12] LABS: ALBUMIN 2.2 g/dL (3.4-5.0); BILIRUBIN,TOTAL 0.5 mg/dL (0.2-1.0); CALCIUM, SERUM 8.2 mg/dL (8.5-10.1); CREATININE 1.8 mg/dL (0.6-1.3); MAGNESIUM 1.5 mg/dL (1.8-2.4); PHOSPHORUS 2.8 mg/dL (2.5-4.9); POTASSIUM 3.2 mmol/L (3.5-5.1)
--- NOTE | 2016-07-16 08:00 | NUR ---
MULTIFOLD OPERATOR; ASSESSMENT RECEIVED PT VENTED VIA TRACH SEE FLOW SHEET FOR VENT SETTINGS. PT IS AWAKE AND ORIENTED RAFAEL TO MOUTH NEEDS. PT DENIES ANY PAIN AT THIS TIME. SWARTZ CATH INTACT DRAINING TO GRAVITY CLEAR YELLOW URINE. NO ACUTE DISTRESS NOTED. WILL CONTINUE WITH PLAN OF CARE.
[2016-07-16] MEDS: FERROUS SULFATE (325 MG) 325 MG/TAB TABLET GT SCH (08:17)
[2016-07-16] MEDS: LINAGLIPTIN 5 MG TABLET GT SCH (08:17)
[2016-07-16] MEDS: BUMETANIDE (1 MG) 1 MG TABLET GT SCH ×2 (08:17→17:37)
[2016-07-16] MEDS: LACTOBACILLUS RHAMNOSUS GG 1 EACH CAP.SPRINK GT SCH (08:17)
[2016-07-16] MEDS: CLOPIDOGREL BISULFATE 75 MG TABLET GT SCH (08:17)
[2016-07-16] MEDS: PANTOPRAZOLE 40 MG/PACK PACK GT SCH (08:17)
[2016-07-16] MEDS: SERTRALINE HCL 25 MG TABLET GT SCH (08:17)
[2016-07-16] MEDS: HYDROGEL DRESSING 90 GM TUBE TP SCH (08:18)
[2016-07-16] MEDS: VIT B CMPLX 3/FA/VIT C/BIOTIN 1 TAB TABLET GT SCH (08:18)
[2016-07-16] MEDS: CHOLESTYRAMINE/ASPARTAME 4 G/PKT PACKET GT SCH (08:18)
[2016-07-16] MEDS: AMIODARONE HCL 200 MG TABLET GT SCH (08:18)
[2016-07-16] MEDS: Z GUARD REMEDY 2 OZ OINT TP SCH ×2 (08:19→17:44)
[2016-07-16 08:57] LABS: ABG BASE EXCESS 1.9 mmol/L; ABG OXYGEN SATURATION 96.9 % (92.0-98.5); ABG PCO2 39.7 mmHg (35.0-45.0); ABG PH 7.437 (7.350-7.450); ABG PO2 102.6 mmHg (75.0-100.0); AaDO2 136.9 mmHg; COHb 0.3 % (0.5-1.5); MetHb 1.1 % (0.0-1.5); O2Hb 95.5 % (94.0-97.0); PEEP,BG 5 cm H2O; SITE, ABG Right Radial; VENT MODE, BG A/C; VT, ABG 450 mL
[2016-07-16] MEDS ORDERED: Magnesium 1GM/D5W 100ML PREMIX 100 ML IV SCH (10:00)
[2016-07-16] MEDS ORDERED: IV SET PRIMARY PUMP SET 1 EA INFUS.SET MC ONE (10:10)
--- NOTE | 2016-07-16 10:15 | NUR ---
DECKER OPERATOR; CARDIO DR. AGUILA AT BEDSIDE UPDATE WAS GIVEN. DISCUSSED REGARDING PT ON PLAVIX DAILY WITH LOW H/H AND NEED FOR THORACENTESIS. MD REVIEWED MEDICATIONS ORDERED TO D/C PLAVIX. ORDERS GIVEN TO TRANSFER PT TO [facility].
[2016-07-16] MEDS: POTASSIUM CL. PREMIX PERIPHER. 50 ML IV SCH ×2 (10:22→11:06)
--- NOTE | 2016-07-16 11:50 | NUR ---
PRESS CLEANER; TRANSFER TRANSFER PT TO [facility] TO ROOM 102 VIA BED WITH ACLS PROTOCOL. PT TOLERATED TRANSFER. BEDSIDE REPORT GIVEN TO АНДРЕЙ Wilson TO CONTINUE WITH POC.
--- NOTE | 2016-07-16 12:00 | NUR ---
[facility] RN NOTE: RECEIVED PATIENT TRANSFERED FROM ICU VIA BED. ALERT AND ORIENTED X3, NONVERBAL HOWEVER ABLE TO MOUTH WORDS. PATIENT NOTED WITH TRACH DANIELLEY 6XLT ON LAURIE T AC 18 TV 450 FIO2 40% PEEP OF 5, NO RESPIRATORY DISTRESS NOTED. SR WITH BBB ON MONITOR. GTUBE NOTED, SITE CLEAN DRY AND DRESSING INTACT RUNNING GLYTROL AT 40ML/HR NO RESIDUAL NOTED. SWARTZ CATHETER DRAINING CLEAR YELLOW URINE TO GRAVITY. LAC MIDLINE NOTED PATENT AND INTACT. VS STABLE AT THIS TIME. PATIENT IN STABLE CONDITION, ORIENTED TO ROOM AND UNIT. SAFETY MEASURES OBSERVED. CALL LIGHT PLACED WITHIN REACH. ONGOING MONITORING.
[2016-07-16] MEDS: VANCOMYCIN 0.75 GM in IV D5W 250 ML IV SCH (16:00)
[2016-07-16] MEDS: GLYTROL 1,000 ML BAG GT PRN (17:36)
--- NOTE | 2016-07-16 18:55 | NUR ---
TA[facility] RN NOTE: PATIENT RESTING COMFORTABLY IN BED, NO DISTRESS NOTED. TOLERATING VENT, TOLERATING GTUBE FEEDING. SWARTZ DRAINING TO GRAVITY. PATIENT TURNED AND REPOSITIONED AND KEPT CLEAN AND DRY. ALL MEDS ADMINISTERED ORDERED AND NEEDS MET. VSS. WILL ENDORSE FOR CONTINUITY OF CARE.
--- NOTE | 2016-07-16 20:00 | NUR ---
TAYLOR RN NOTE: RECEIVED PATIENT IN BED. ALERT AND ORIENTED X3, NONVERBAL HOWEVER ABLE TO MOUTH WORDS. PATIENT NOTED WITH TRACH SHILEY 6XLT ON VENT AC 18 TV 450 FIO2 40% PEEP OF 5, NO RESPIRATORY DISTRESS NOTED. SR WITH BBB ON MONITOR. GTUBE NOTED, SITE CLEAN DRY AND DRESSING INTACT RUNNING GLYTROL AT 40ML/HR NO RESIDUAL NOTED. SWARTZ CATHETER DRAINING CLEAR YELLOW URINE TO GRAVITY. LAC MIDLINE NOTED PATENT AND INTACT. VS STABLE AT THIS TIME. PATIENT IN STABLE CONDITION, ORIENTED TO ROOM AND UNIT. SAFETY MEASURES OBSERVED. CALL LIGHT PLACED WITHIN REACH. ONGOING MONITORING.
[2016-07-16] MEDS: ENOXAPARIN SODIUM 30 MG/0.3 ML DISP.SYRIN SQ SCH (20:21)
[2016-07-16] MEDS: ATORVASTATIN 40 MG TABLET GT SCH (22:22)
[2016-07-17] VITALS: BP 120/52
[2016-07-17] MEDS: PIPERACILLIN /TAZOBACTAM 2.25 G in IV D5W 50 ML IV SCH ×5 (00:10→23:46)
[2016-07-17] MEDS: BLOOD SUGAR DIAGNOSTIC 1 EACH STRIP IN SCH ×5 (00:11→23:21)
[2016-07-17] MEDS: INSULIN REGULAR, HUMAN 100 UNIT/ML 3 ML VIAL SQ PRN ×4 (00:18→17:53)
[2016-07-17] MEDS: ACETYLCYSTEINE 10% SOLN 400 MG/4 ML VIAL NEB SCH ×4 (01:52→19:55)
[2016-07-17] MEDS: ALBUTEROL FS 2.5 MG/3 ML VIAL.NEB NEB SCH ×4 (01:52→19:55)
[2016-07-17] MEDS: IPRATROPIUM NEB FS 0.5 MG/2.5 ML AMPUL.NEB NEB SCH ×4 (01:52→19:56)
[2016-07-17 04:00] VITALS: BP 121/56
[2016-07-17 06:03] LABS: BASOPHILS % (AUTO) 0.4 % (0.0-2.0); EOSINOPHILS # (AUTO) 0.3 /CMM (0.0-0.7); HEMATOCRIT 27 % (33-45); HEMOGLOBIN 8.8 g/dL (11.5-14.8); LYMPHOCYTES # (AUTO) 1.5 /CMM (0.8-4.8); LYMPHOCYTES % (AUTO) 16.5 % (20.0-44.0); MEAN CORPUSCULAR HEMOGLOBIN 29 PG (26.0-33.0); MEAN CORPUSCULAR HGB CONC 32 g/dl (31.0-36.0); MEAN CORPUSCULAR VOLUME 90 fL (82-100); MONOCYTES # (AUTO) 0.7 /CMM (0.1-1.30); MONOCYTES % (AUTO) 7.4 % (2.0-12.0); NEUTROPHILS # (AUTO) 6.7 /CMM (1.8-8.9); NEUTROPHILS % (AUTO) 72.7 % (43.0-81.0); PLATELET COUNT (AUTO) 213 /CMM (150-450); RDW COEFFICIENT OF VARIATION 19.1 (11.5-15.0); RED BLOOD CELL COUNT(AUTO) 3.03 MIL/uL (4.0-5.2); WHITE BLOOD COUNT (AUTO) 9.2 K/uL (4.3-11.0)
[2016-07-17 06:18] LABS: ALBUMIN 2.3 g/dL (3.4-5.0); BILIRUBIN,TOTAL 0.4 mg/dL (0.2-1.0); CALCIUM, SERUM 8.6 mg/dL (8.5-10.1); MAGNESIUM 1.7 mg/dL (1.8-2.4); PHOSPHORUS 3.1 mg/dL (2.5-4.9); POTASSIUM 3.5 mmol/L (3.5-5.1); TOTAL PROTEIN, SERUM 6.2 g/dL (6.4-8.2)
[2016-07-17 08:00] VITALS: BP 111/45
[2016-07-17] MEDS ORDERED: Magnesium 1GM/D5W 100ML PREMIX 100 ML IV SCH (08:00)
[2016-07-17] MEDS: FERROUS SULFATE (325 MG) 325 MG/TAB TABLET GT SCH (09:16)
[2016-07-17] MEDS: VIT B CMPLX 3/FA/VIT C/BIOTIN 1 TAB TABLET GT SCH (09:16)
[2016-07-17] MEDS: LACTOBACILLUS RHAMNOSUS GG 1 EACH CAP.SPRINK GT SCH (09:16)
[2016-07-17] MEDS: CHOLESTYRAMINE/ASPARTAME 4 G/PKT PACKET GT SCH (09:16)
[2016-07-17] MEDS: SERTRALINE HCL 25 MG TABLET GT SCH (09:16)
[2016-07-17] MEDS: LINAGLIPTIN 5 MG TABLET GT SCH (09:16)
[2016-07-17] MEDS: PANTOPRAZOLE 40 MG/PACK PACK GT SCH (09:16)
[2016-07-17] MEDS: BUMETANIDE (1 MG) 1 MG TABLET GT SCH ×2 (09:17→16:48)
[2016-07-17] MEDS: AMIODARONE HCL 200 MG TABLET GT SCH (09:17)
[2016-07-17] MEDS: Z GUARD REMEDY 2 OZ OINT TP SCH ×2 (09:18→16:49)
[2016-07-17] MEDS: HYDROGEL DRESSING 90 GM TUBE TP SCH (09:18)
[2016-07-17 12:00] VITALS: BP 115/56
[2016-07-17] MEDS ORDERED: VANCOMYCIN 1 GM in IV D5W 250 ML IV SCH (15:00)
[2016-07-17 16:00] VITALS: BP 114/54
[2016-07-17] MEDS ORDERED: VANCOMYCIN 500 MG in IV D5W 100 ML IV SCH (16:00)
[2016-07-17] MEDS: VANCOMYCIN 0.75 GM in IV D5W 250 ML IV SCH (16:48)
[2016-07-17 20:00] VITALS: BP 165/60
--- NOTE | 2016-07-17 20:18 | NUR ---
received pt from day shift, a/o x4, follows commands, SR, BBB, on the vent, lungs congested, some non pitting edema BLLE, GT to feeding tolerates well, f/c low output MD aware, v/s stable, no pain, pt turned and repositioned, family at the bedside.
[2016-07-17] MEDS: GLYTROL 1,000 ML BAG GT PRN (20:53)
[2016-07-17] MEDS: ATORVASTATIN 40 MG TABLET GT SCH (20:53)
[2016-07-17] MEDS ORDERED: IV NS 0.9% 250 ML IV ONE (20:56)
[2016-07-17] MEDS: ENOXAPARIN SODIUM 30 MG/0.3 ML DISP.SYRIN SQ SCH (20:56)
[2016-07-18] VITALS (7 sets, daily range): BP systolic 102–115; BP diastolic 38–60
[2016-07-18] MEDS: ACETYLCYSTEINE 10% SOLN 400 MG/4 ML VIAL NEB SCH ×4 (01:51→20:00)
[2016-07-18] MEDS: ALBUTEROL FS 2.5 MG/3 ML VIAL.NEB NEB SCH ×4 (01:52→20:00)
[2016-07-18] MEDS: IPRATROPIUM NEB FS 0.5 MG/2.5 ML AMPUL.NEB NEB SCH ×4 (01:52→20:00)
--- NOTE | 2016-07-18 04:06 | NUR ---
pt is resting in the bed, no acute distress overnight, v/s stable, no pain, pt cleaned, changed and repositioned q2hrs. pt refused CT chest scheduled for 07/18 at 0500.
[2016-07-18] MEDS: BLOOD SUGAR DIAGNOSTIC 1 EACH STRIP IN SCH ×4 (05:32→23:02)
[2016-07-18] MEDS: PIPERACILLIN /TAZOBACTAM 2.25 G in IV D5W 50 ML IV SCH ×4 (05:32→23:03)
[2016-07-18 06:00] LABS: BASOPHILS % (AUTO) 0.4 % (0.0-2.0); EOSINOPHILS # (AUTO) 0.4 /CMM (0.0-0.7); EOSINOPHILS % (AUTO) 4.1 % (0.0-6.0); HEMATOCRIT 27 % (33-45); HEMOGLOBIN 8.8 g/dL (11.5-14.8); LYMPHOCYTES # (AUTO) 1.8 /CMM (0.8-4.8); LYMPHOCYTES % (AUTO) 19.9 % (20.0-44.0); MEAN CORPUSCULAR HEMOGLOBIN 29 PG (26.0-33.0); MEAN CORPUSCULAR HGB CONC 32 g/dl (31.0-36.0); MEAN CORPUSCULAR VOLUME 91 fL (82-100); MONOCYTES # (AUTO) 0.8 /CMM (0.1-1.30); MONOCYTES % (AUTO) 8.7 % (2.0-12.0); NEUTROPHILS # (AUTO) 6.1 /CMM (1.8-8.9); NEUTROPHILS % (AUTO) 66.9 % (43.0-81.0); PLATELET COUNT (AUTO) 215 /CMM (150-450); RDW COEFFICIENT OF VARIATION 18.7 (11.5-15.0); WHITE BLOOD COUNT (AUTO) 9.1 K/uL (4.3-11.0)
[2016-07-18 06:28] LABS: ALBUMIN 2.3 g/dL (3.4-5.0); BILIRUBIN,TOTAL 0.4 mg/dL (0.2-1.0); CALCIUM, SERUM 8.5 mg/dL (8.5-10.1); CREATININE 1.9 mg/dL (0.6-1.3); MAGNESIUM 1.7 mg/dL (1.8-2.4); PHOSPHORUS 3.5 mg/dL (2.5-4.9); POTASSIUM 3.4 mmol/L (3.5-5.1); TOTAL PROTEIN, SERUM 6.3 g/dL (6.4-8.2)
--- NOTE | 2016-07-18 07:30 | NUR ---
initial note resting in bed. with mech vent, and GT, no complications. no SOB, no residuals. patient follows commands. alert and oriented x4. skin warm and dry. reyes midline patent, dressing cdi. offloading heels and elbows. discussed plan of care. plan to obtain sputum and stool specimen today. call light in reach.
[2016-07-18] MEDS: PANTOPRAZOLE 40 MG/PACK PACK GT SCH (08:29)
[2016-07-18] MEDS: LACTOBACILLUS RHAMNOSUS GG 1 EACH CAP.SPRINK GT SCH (08:29)
[2016-07-18] MEDS: VIT B CMPLX 3/FA/VIT C/BIOTIN 1 TAB TABLET GT SCH (08:29)
[2016-07-18] MEDS: FERROUS SULFATE (325 MG) 325 MG/TAB TABLET GT SCH (08:29)
[2016-07-18] MEDS: BUMETANIDE (1 MG) 1 MG TABLET GT SCH ×2 (08:29→17:45)
[2016-07-18] MEDS: LINAGLIPTIN 5 MG TABLET GT SCH (08:29)
[2016-07-18] MEDS: CHOLESTYRAMINE/ASPARTAME 4 G/PKT PACKET GT SCH (08:29)
[2016-07-18] MEDS: SERTRALINE HCL 25 MG TABLET GT SCH (08:29)
[2016-07-18] MEDS: Z GUARD REMEDY 2 OZ OINT TP SCH ×2 (08:30→17:51)
[2016-07-18] MEDS: AMIODARONE HCL 200 MG TABLET GT SCH (08:30)
[2016-07-18] MEDS: HYDROGEL DRESSING 90 GM TUBE TP SCH (08:30)
[2016-07-18] MEDS: INSULIN REGULAR, HUMAN 100 UNIT/ML 3 ML VIAL SQ PRN ×3 (11:30→23:07)
[2016-07-18] MEDS ORDERED: Magnesium 1GM/D5W 100ML PREMIX 100 ML IV SCH (11:42)
[2016-07-18] MEDS ORDERED: POTASSIUM CHLORIDE 20 MEQ POWDER PACKET GT ONE (12:30)
[2016-07-18] MEDS ORDERED: SECONDARY IV SET 1 EA INFUS.SET MC ONE (12:59)
--- NOTE | 2016-07-18 17:56 | NUR ---
RT END OF THE SHIFT: PT. 70 Y OLD FEMALE REMAIN TRACHED, SHILEY XLT # 6 ON VENT WITH NOTED SETTINGS, ALARMS ARE SET AND FUNCTIONAL. AND B/S BILATERALLY RALES, RAE'XD FOR MINIMAL AMT OF SECRETION, NO CHANGES T/O THE SHIFT. TX'S GIVEN INLINE BECKI. WELL NO ADVERSE REACTION NOTED. , HME CHANGED AND EVENTS INTERN DONE. EQUAL CHEST RISE NOTED. PT. REMAIN STABLE. VENT PLUGGED INTO RED OUTLET. REPORT WILL PASS TO PM SHIFT Addendum: 07/18/16 at 1757 by JAY MACARIO RT Amended: Links added.
[2016-07-18] MEDS: GLYTROL 1,000 ML BAG GT PRN (17:59)
--- NOTE | 2016-07-18 19:30 | NUR ---
RN INITIAL NOTES RECEIVED PT AWAKE ON BED WITH AT BEDSIDE. A/O X 2-3, NON-VERBAL BUT ABLE TO MOUTH WORDS. ON VENT, AC18, TV 450, 40% FIO2, PEEP 5, SHILEY 6 XLT. SR ON THE MONITOR, HR 80'S. SWARTZ CATH NOTED. ON GTF GLYTROL @ 40MLS/HR, NO RESIDUALS. LEFT UPPER ARM MIDLINE, FLUSHED AND PATENT, NO S/S OF INFILTRATION/INFECTION, DRESSING CDI. BED LOW AND LOCKED, SIDERAILS UP, CALL LIGHT WITHIN REACH. WILL MONITOR
--- NOTE | 2016-07-18 19:34 | NUR ---
closing note no change of condition. patient resting in bed with mechanical ventilator and patent tracheostomy. suctioned PRN. rendered ADL care and repositioning frequently. GT patent, no residuals. YUE midline patent, no complications. f/c patent. sputum and stool sample collected and notified lab. no bleeding at any site noted. no new wounds this shift.
[2016-07-18] MEDS: ATORVASTATIN 40 MG TABLET GT SCH (21:04)
[2016-07-18] MEDS: ENOXAPARIN SODIUM 30 MG/0.3 ML DISP.SYRIN SQ SCH (21:05)
[2016-07-19] VITALS (7 sets, daily range): BP systolic 101–113; BP diastolic 46–60
[2016-07-19] MEDS: ACETYLCYSTEINE 10% SOLN 400 MG/4 ML VIAL NEB SCH ×4 (01:17→19:56)
[2016-07-19] MEDS: IPRATROPIUM NEB FS 0.5 MG/2.5 ML AMPUL.NEB NEB SCH ×4 (01:17→19:56)
[2016-07-19] MEDS: ALBUTEROL FS 2.5 MG/3 ML VIAL.NEB NEB SCH ×4 (01:17→19:56)
[2016-07-19] MEDS ORDERED: IV NS 0.9% 250 ML IV ONE ×2 (03:07→21:59)
[2016-07-19] MEDS: VANCOMYCIN 0.75 GM in IV D5W 250 ML IV SCH (03:09)
[2016-07-19] MEDS ORDERED: SECONDARY IV SET 1 EA INFUS.SET MC ONE ×2 (03:20→12:36)
[2016-07-19] MEDS: BLOOD SUGAR DIAGNOSTIC 1 EACH STRIP IN SCH ×4 (05:14→17:33)
[2016-07-19] MEDS: PIPERACILLIN /TAZOBACTAM 2.25 G in IV D5W 50 ML IV SCH ×3 (05:14→17:33)
[2016-07-19] MEDS: INSULIN REGULAR, HUMAN 100 UNIT/ML 3 ML VIAL SQ PRN ×3 (05:18→17:38)
[2016-07-19 06:39] LABS: BASOPHILS % (AUTO) 0.4 % (0.0-2.0); EOSINOPHILS # (AUTO) 0.3 /CMM (0.0-0.7); EOSINOPHILS % (AUTO) 4.2 % (0.0-6.0); HEMATOCRIT 26 % (33-45); HEMOGLOBIN 8.2 g/dL (11.5-14.8); LYMPHOCYTES # (AUTO) 1.4 /CMM (0.8-4.8); LYMPHOCYTES % (AUTO) 18.2 % (20.0-44.0); MEAN CORPUSCULAR HEMOGLOBIN 29 PG (26.0-33.0); MEAN CORPUSCULAR HGB CONC 32 g/dl (31.0-36.0); MEAN CORPUSCULAR VOLUME 90 fL (82-100); MONOCYTES # (AUTO) 0.8 /CMM (0.1-1.30); MONOCYTES % (AUTO) 9.7 % (2.0-12.0); NEUTROPHILS # (AUTO) 5.3 /CMM (1.8-8.9); NEUTROPHILS % (AUTO) 67.5 % (43.0-81.0); PLATELET COUNT (AUTO) 211 /CMM (150-450); RDW COEFFICIENT OF VARIATION 18.3 (11.5-15.0); RED BLOOD CELL COUNT(AUTO) 2.83 MIL/uL (4.0-5.2); WHITE BLOOD COUNT (AUTO) 7.9 K/uL (4.3-11.0)
--- NOTE | 2016-07-19 07:15 | NUR ---
RN INITIAL NOTES: Rec'd pt awake on bed, HOB elevated, not in any distress, A/O x 3, able to make needs known. Pt on mech vent via trach on Shiley 6 XLT w/ ff settings: AC 18, TV 450, FiO2 40%, PEEP 5, saturating at 100%. Suctioned whitish thin secretions. Pt has PEG patent & intact, on continuous tube feeding Glytrol 40 cc/hr infusing well, no residuals noted upon checking. Has YUE midline, SL, flushed, patent & intact w/ no signs of infection/ infiltration noted. Has patent & intact FC draining to adequate urine output. Call light placed w/in reach. Bed kept low & in locked position. Provided comfort measures. Will turn, reposition & offload heels as per protocol. Will continue to monitor.
[2016-07-19 07:29] LABS: CALCIUM, SERUM 8.4 mg/dL (8.5-10.1); CREATININE 1.8 mg/dL (0.6-1.3); PHOSPHORUS 3.5 mg/dL (2.5-4.9); POTASSIUM 3.6 mmol/L (3.5-5.1)
[2016-07-19] MEDS: ACETAMINOPHEN 650 MG/20.3 ML UDC GT PRN (09:35)
[2016-07-19] MEDS: VIT B CMPLX 3/FA/VIT C/BIOTIN 1 TAB TABLET GT SCH (09:35)
[2016-07-19] MEDS: CHOLESTYRAMINE/ASPARTAME 4 G/PKT PACKET GT SCH (09:36)
[2016-07-19] MEDS: LACTOBACILLUS RHAMNOSUS GG 1 EACH CAP.SPRINK GT SCH (09:36)
[2016-07-19] MEDS: PANTOPRAZOLE 40 MG/PACK PACK GT SCH (09:36)
[2016-07-19] MEDS: SERTRALINE HCL 25 MG TABLET GT SCH (09:36)
[2016-07-19] MEDS: LINAGLIPTIN 5 MG TABLET GT SCH (09:36)
[2016-07-19] MEDS: BUMETANIDE (1 MG) 1 MG TABLET GT SCH ×2 (09:36→16:27)
[2016-07-19] MEDS: FERROUS SULFATE (325 MG) 325 MG/TAB TABLET GT SCH (09:36)
[2016-07-19] MEDS: AMIODARONE HCL 200 MG TABLET GT SCH (09:36)
[2016-07-19] MEDS: HYDROGEL DRESSING 90 GM TUBE TP SCH (09:37)
[2016-07-19] MEDS: Z GUARD REMEDY 2 OZ OINT TP SCH ×2 (09:37→16:28)
--- NOTE | 2016-07-19 12:00 | NUR ---
RN NOTES: As per Dr. Rhoades, pt needs thoracentesis today. Spoke w/ Arielle ([facility]), informed her about the orders. made aware that as per [facility] de[facility] they can only do one lung today and the other lung tomorrow. MD agreed and ordered to do cytology test for the fluid. Consent on US Guided Thoracentesis of the Left Lung secured c/o daughter.
[2016-07-19] MEDS: METOLAZONE 2.5 MG TABLET PO SCH (13:18)
--- NOTE | 2016-07-19 14:30 | NUR ---
RN NOTES: US Guided Thoracentesis of the left lung started c/o Arielle from [facility] Dept.
--- NOTE | 2016-07-19 15:30 | NUR ---
RN NOTES: US Guided Thoracentesis of the L lung tolerated by pt. Pleural fluid specimen sent to Laboratory for cytology test.
--- NOTE | 2016-07-19 17:00 | NUR ---
RN NOTES: Dr. Rhoades made aware of the output from L lung thoracentesis.
--- NOTE | 2016-07-19 19:21 | NUR ---
RN CLOSING NOTES: No acute changes noted w/in shift. Pt tolerated mech vent settings, saturating at 100%. Suctioned secretions. PEG kept patent & intact, on continuous tube feeding Glytrol 40 cc/hr infusing well, no residuals noted w/in shift. YUE midline, kept patent & intact w/ no signs of infection/ infiltration noted. FC kept patent & intact w/ adequate urine output. Call light placed w/in reach. Bed kept low & in locked position. Provided comfort measures. Wound care done. Turned, repositioned & offload heels. Pt tolerated well L lung thoracentesis. Pt for R lung thoracentesis tomorrow, consent in. Endorsed to PM RN.
--- NOTE | 2016-07-19 19:30 | NUR ---
COMPUTER NETWORK AND SYSTEMS ENGINEER INITIAL NOTE RECIEVED REPORT FROM JENNIFER GALLEGO. PT IN BED. A/A/O X3. MOUTHS WORDS, PRIMARY LANGUAGE IS MONTSERRATIAN. CHRONIC VENT TRACH, TOLERATING CURRENT VENT SETTINGS. LUNG SOUNDS RHONCHI. BOWEL SOUNDS PRESENT, GT PATENT AND INTACT WITH 10 CC RESIDUAL FROM FEEDING. SWARTZ INTACT AND DRAINING URINE. PULSES PRESENT IN ALL EXTREMITIES. IV PATENT AND INTACT. REPOSITIONED FOR COMFORT. BED IN LOW LOCKED POSITION. CALL LIGHT WITHIN REACH. WILL CONTINUE TO MONITOR.
[2016-07-19] MEDS: ENOXAPARIN SODIUM 30 MG/0.3 ML DISP.SYRIN SQ SCH (21:25)
[2016-07-19] MEDS: ATORVASTATIN 40 MG TABLET GT SCH (21:26)
[2016-07-19] MEDS ORDERED: IV SET PRIMARY PUMP SET 1 EA INFUS.SET MC ONE (21:59)
[2016-07-19] MEDS: GLYTROL 1,000 ML BAG GT PRN (22:09)
[2016-07-20] VITALS: BP 106/48
[2016-07-20] MEDS: BLOOD SUGAR DIAGNOSTIC 1 EACH STRIP IN SCH ×5 (00:32→23:39)
[2016-07-20] MEDS: PIPERACILLIN /TAZOBACTAM 2.25 G in IV D5W 50 ML IV SCH ×3 (00:32→11:18)
[2016-07-20] MEDS ORDERED: SECONDARY IV SET 1 EA INFUS.SET MC ONE ×3 (00:36→15:51)
[2016-07-20] MEDS: INSULIN REGULAR, HUMAN 100 UNIT/ML 3 ML VIAL SQ PRN ×4 (00:58→23:46)
[2016-07-20] MEDS: ALBUTEROL FS 2.5 MG/3 ML VIAL.NEB NEB SCH ×4 (01:32→20:15)
[2016-07-20] MEDS: ACETYLCYSTEINE 10% SOLN 400 MG/4 ML VIAL NEB SCH ×4 (01:32→20:15)
[2016-07-20] MEDS: IPRATROPIUM NEB FS 0.5 MG/2.5 ML AMPUL.NEB NEB SCH ×4 (01:32→20:15)
[2016-07-20 04:00] VITALS: BP 110/52
[2016-07-20 06:51] LABS: CALCIUM, SERUM 8.4 mg/dL (8.5-10.1); CREATININE 1.8 mg/dL (0.6-1.3); POTASSIUM 3.3 mmol/L (3.5-5.1)
[2016-07-20 08:00] VITALS: BP 99/48
[2016-07-20] MEDS: LACTOBACILLUS RHAMNOSUS GG 1 EACH CAP.SPRINK GT SCH (08:40)
[2016-07-20] MEDS: PANTOPRAZOLE 40 MG/PACK PACK GT SCH (08:40)
[2016-07-20] MEDS: VIT B CMPLX 3/FA/VIT C/BIOTIN 1 TAB TABLET GT SCH (08:40)
[2016-07-20] MEDS: AMIODARONE HCL 200 MG TABLET GT SCH (08:40)
[2016-07-20] MEDS: CHOLESTYRAMINE/ASPARTAME 4 G/PKT PACKET GT SCH (08:40)
[2016-07-20] MEDS: BUMETANIDE (1 MG) 1 MG TABLET GT SCH ×2 (08:40→16:02)
[2016-07-20] MEDS: METOLAZONE 2.5 MG TABLET PO SCH (08:41)
[2016-07-20] MEDS: SERTRALINE HCL 25 MG TABLET GT SCH (08:41)
[2016-07-20] MEDS: FERROUS SULFATE (325 MG) 325 MG/TAB TABLET GT SCH (08:41)
[2016-07-20] MEDS: LINAGLIPTIN 5 MG TABLET GT SCH (08:41)
[2016-07-20] MEDS: Z GUARD REMEDY 2 OZ OINT TP SCH ×2 (08:42→16:02)
[2016-07-20] MEDS: HYDROGEL DRESSING 90 GM TUBE TP SCH (08:42)
[2016-07-20] MEDS ORDERED: POTASSIUM CHLORIDE 20 MEQ POWDER PACKET GT ONE (11:00)
[2016-07-20] MEDS ORDERED: Potassium Chloride 40 MEQ in IV NS 0.9% 1,000 ML IV PRN (11:30)
[2016-07-20] MEDS ORDERED: IV SET PRIMARY PUMP SET 1 EA INFUS.SET MC ONE (11:54)
[2016-07-20 12:00] VITALS: BP 103/46
[2016-07-20] MEDS ORDERED: EPOETIN ALFA (20,000 UNIT) 20,000 UNIT/ML VIAL SQ ONE (12:00)
[2016-07-20] MEDS ORDERED: BUMETANIDE INJ 6 MG in IV NS 0.9% 36 ML IV ONE (12:00)
[2016-07-20] MEDS ORDERED: METOLAZONE 2.5 MG TABLET PO SCH (12:00)
[2016-07-20] MEDS: POTASSIUM CL. PREMIX PERIPHER. 50 ML IV SCH ×4 (12:12→16:46)
[2016-07-20 12:25] LABS: INR 1.11 (0.87-1.13); PROTHROMBIN TIME 11.9 SECS (9.5-12.7)
--- NOTE | 2016-07-20 13:30 | NUR ---
FAMILY AT BEDSIDE WANT TO SPEAK WITH CHARGE NURSE REGARDING PLAN OF CARE. THEY WANT HER DISCHARGED SOONER IF THEY ARE NOT GOING TO DO THE THORACENTESIS ON RIGHT SIDE. CHARGE NURSE AT BEDSIDE TO TALK WITH FAMILY I PAGED FOR DR. ENAMORADO TWICE AWAITING CALL BACK.
--- NOTE | 2016-07-20 14:00 | NUR ---
CALLED PHARMACY TWICE FOR BUMEX, THEY STATE THAT THEY WILL BRING IT UP.
--- NOTE | 2016-07-20 14:42 | NUR ---
CALLED PHARMACY AGAIN FOR ROBIX THEY STATE THAT ITS DONE AND THEY WILL BRING IT UP RIGHT NOW.
--- NOTE | 2016-07-20 14:47 | NUR ---
STOOL SPECIMEN #1 COLLECTED AND SENT TO LAB FOR STOOL OB
[2016-07-20] MEDS: CEFEPIME 2 GM in IV D5W 100 ML IV SCH (15:55)
[2016-07-20 16:00] VITALS: BP 107/50
[2016-07-20 20:00] VITALS: BP 137/65
--- NOTE | 2016-07-20 20:15 | NUR ---
TAYLOR/NEWSPAPER COLUMNIST RESPIRATORY THERAPIST AT BEDSIDE GIVING BREATHING TREATMENT. PT CONTINUES TO BE ON CURRENT VENT SETTINGS. SATURATION IS 98-100%. PT REQUIRES FREQUENT SUCTIONING. WILL MONITOR THIS PT.
[2016-07-20] MEDS: COLISTIMETHATE SODIUM 150 MG VIAL NEB SCH (21:00)
[2016-07-20] MEDS: ATORVASTATIN 40 MG TABLET GT SCH (21:38)
[2016-07-20] MEDS: ENOXAPARIN SODIUM 30 MG/0.3 ML DISP.SYRIN SQ SCH (21:39)
--- NOTE | 2016-07-20 21:45 | NUR ---
TAYLOR/TIPPLE REPAIRER PT'S PM MEDICATION GIVEN, PT TOLERATED THIS WELL. RESIDUALS CHECKED FOR G/TUBE, THERE WAS NO RESIDUALS AT THIS TIME. WILL MONITOR THIS. PT APPEARS TO BE COMFORTABLE, NO ACUTE DISTRESS SEEN.
[2016-07-20] MEDS ORDERED: IV NS 0.9% 250 ML IV ONE (23:47)
[2016-07-21] VITALS (28 sets, daily range): BP systolic 92–144; BP diastolic 26–85
--- NOTE | 2016-07-21 00:10 | NUR ---
TAYLOR/PAINT PROCESS ENGINEER BLOOD SUGAR WAS 170, PT WAS GIVEN COVERAGE FOR THIS PER MD ORDERS. WILL MONITOR THIS PT'S SUGARS ORDERED. PT WAS TURNED AND REPOSITIONED FOR COMFORT AND CARE.
--- NOTE | 2016-07-21 01:30 | NUR ---
TAYLOR/SIX SIGMA BLACK BELT ENGINEER RESPIRATORY THERAPIST AT BEDSIDE GIVING BREATHING TREATMENT. PT CONTINUES TO BE ON CURRENT VENT SETTINGS. SATURATION IS 98-100%. PT REQUIRES FREQUENT SUCTIONING. WILL MONITOR THIS PT.
[2016-07-21] MEDS: GLYTROL 1,000 ML BAG GT PRN (01:39)
[2016-07-21] MEDS: ALBUTEROL FS 2.5 MG/3 ML VIAL.NEB NEB SCH ×4 (01:48→20:00)
[2016-07-21] MEDS: IPRATROPIUM NEB FS 0.5 MG/2.5 ML AMPUL.NEB NEB SCH ×4 (01:48→20:00)
[2016-07-21] MEDS: ACETYLCYSTEINE 10% SOLN 400 MG/4 ML VIAL NEB SCH ×4 (01:48→20:00)
[2016-07-21] MEDS: BLOOD SUGAR DIAGNOSTIC 1 EACH STRIP IN SCH ×4 (05:15→23:57)
[2016-07-21] MEDS: INSULIN REGULAR, HUMAN 100 UNIT/ML 3 ML VIAL SQ PRN ×3 (05:21→23:55)
--- NOTE | 2016-07-21 05:43 | NUR ---
TAYLOR/PLANT BUYER BLOOD SUGAR WAS 141, PT WAS GIVEN COVERAGE FOR THIS PER MD ORDERS. WILL MONITOR THIS PT'S SUGARS ORDERED. PT WAS TURNED AND REPOSITIONED FOR COMFORT AND CARE.
[2016-07-21 06:16] LABS: BASOPHILS % (AUTO) 0.2 % (0.0-2.0); EOSINOPHILS # (AUTO) 0.2 /CMM (0.0-0.7); EOSINOPHILS % (AUTO) 2.1 % (0.0-6.0); HEMATOCRIT 28 % (33-45); HEMOGLOBIN 8.7 g/dL (11.5-14.8); LYMPHOCYTES # (AUTO) 1.4 /CMM (0.8-4.8); LYMPHOCYTES % (AUTO) 11.6 % (20.0-44.0); MEAN CORPUSCULAR HEMOGLOBIN 29 PG (26.0-33.0); MEAN CORPUSCULAR HGB CONC 32 g/dl (31.0-36.0); MEAN CORPUSCULAR VOLUME 91 fL (82-100); MONOCYTES # (AUTO) 0.9 /CMM (0.1-1.30); MONOCYTES % (AUTO) 7.3 % (2.0-12.0); NEUTROPHILS # (AUTO) 9.5 /CMM (1.8-8.9); NEUTROPHILS % (AUTO) 78.8 % (43.0-81.0); PLATELET COUNT (AUTO) 253 /CMM (150-450); RDW COEFFICIENT OF VARIATION 19.2 (11.5-15.0); RED BLOOD CELL COUNT(AUTO) 3.04 MIL/uL (4.0-5.2)
--- NOTE | 2016-07-21 06:46 | NUR ---
TA[facility]OR/MICROSOFT DYNAMICS CONSULTANT PT CONTINUES TO HAVE BREATHING TREATMENTS, SATURATION IS 98-100% ON CURRENT VENT SETTINGS. NO ACUTE RESPIRATORY DISTRESS SEEN.
[2016-07-21 06:48] LABS: CALCIUM, SERUM 8.8 mg/dL (8.5-10.1); CREATININE 1.9 mg/dL (0.6-1.3); POTASSIUM 3.7 mmol/L (3.5-5.1)
--- NOTE | 2016-07-21 08:00 | NUR ---
TELE1/RN AM SHIFT INITIAL ASH RECEIVED PT AWAKE SITTING IN BED. PT A/O X 3, ABLE TO MOUTH WORDS IN RWANDAN, DENIES PAIN OR ANY SYMPTOMS. NO ACUTE CHANGE OF CONDITION NOTED AT THIS TIME. ON VENTILATOR RATE SET PRESCRIBED, SATURATING @ 98%, ON TELE WITH SINUS TACHY, HR 105 WITH BBB. IV SITE ON TKO, PATENT WITH NO S/S OF INFECTION. ON GOING GTF @ 65CC/HR, NO GASTRIC RESIDUAL, FLUSHED, PATENT. SWARTZ CATHETER INTACT WITH YELLOW URINE OUTPUT. PT IS COMFORTABLE AT THIS TIME. CL WITHIN REACHED AND SAFETY MAINTAINED. ON GOING MONITORING.
[2016-07-21] MEDS: CHOLESTYRAMINE/ASPARTAME 4 G/PKT PACKET GT SCH (09:13)
[2016-07-21] MEDS: BUMETANIDE (1 MG) 1 MG TABLET GT SCH ×2 (09:15→17:00)
[2016-07-21] MEDS: PANTOPRAZOLE 40 MG/PACK PACK GT SCH (09:15)
[2016-07-21] MEDS: FERROUS SULFATE (325 MG) 325 MG/TAB TABLET GT SCH (09:15)
[2016-07-21] MEDS: VIT B CMPLX 3/FA/VIT C/BIOTIN 1 TAB TABLET GT SCH (09:15)
[2016-07-21] MEDS: LACTOBACILLUS RHAMNOSUS GG 1 EACH CAP.SPRINK GT SCH (09:15)
[2016-07-21] MEDS: SERTRALINE HCL 25 MG TABLET GT SCH (09:15)
[2016-07-21] MEDS: METOLAZONE 2.5 MG TABLET PO SCH (09:15)
[2016-07-21] MEDS: LINAGLIPTIN 5 MG TABLET GT SCH (09:16)
[2016-07-21] MEDS: Z GUARD REMEDY 2 OZ OINT TP SCH ×2 (09:16→17:00)
[2016-07-21] MEDS: AMIODARONE HCL 200 MG TABLET GT SCH ×3 (09:16→21:46)
[2016-07-21] MEDS: HYDROGEL DRESSING 90 GM TUBE TP SCH (09:17)
[2016-07-21 09:21] LABS: FERRITIN 962 ng/mL (8-388)
[2016-07-21] MEDS: COLISTIMETHATE SODIUM 150 MG VIAL NEB SCH (09:50)
[2016-07-21 11:18] LABS: IRON, SERUM 21 ug/dl (50-175); TOTAL IRON BINDING CAPACITY 152 ug/dl (250-450)
--- NOTE | 2016-07-21 12:00 | NUR ---
[facility]OR/RN CHANGE OF CONDITION PT DIAPHORETIC, WITH INCREASED HR 127, ON TELE HEART RHYTHM CHANGE TO A-FIB. DR. PATTERSON WAS ROUNDING, NOTIFIED MD, ORDER FOR STAT ABG, CHARGE NURSE MADE AWARE OF SITUATION. PT VOMITED. GT FEEDING HELD. BLOOD GLUCOSE CHECKED, 240, PT TO BE GIVEN 4 UNITS OF INSULIN. PT AT BEDSIDE. CLOSELY MONITORING.
[2016-07-21] MEDS: ACETAMINOPHEN 650 MG/20.3 ML UDC GT PRN (12:12)
[2016-07-21 12:28] LABS: ABG BASE EXCESS -5.7 mmol/L; ABG OXYGEN SATURATION 85.3 % (92.0-98.5); ABG PCO2 63.4 mmHg (35.0-45.0); ABG PH 7.181 (7.350-7.450); ABG PO2 61.6 mmHg (75.0-100.0); AaDO2 150.7 mmHg; COHb 0.5 % (0.5-1.5); MetHb 0.5 % (0.0-1.5); O2Hb 84.4 % (94.0-97.0); PEEP,BG 5 cm H2O; SITE, ABG Right Brachial; VT, ABG 450 mL
--- NOTE | 2016-07-21 12:39 | NUR ---
vent changes made per dr. elvia del rosario 22 vt 500 fio2 60% Addendum: 07/21/16 at 1239 by NURIS VANN RT Amended: Links added.
--- NOTE | 2016-07-21 12:45 | NUR ---
TELE1/ROUNDSMAN TO ICU - ROOM 261 ABG RESULT CAME BACK, DR. PATTERSON ASSESSED PT, VENT SETTING CHANGE TO AC 22, TV 500 AND FIO2 60%. MD ORDERED PT TO BE TRANSFERRED TO ICU, TO START OF AMIODARONE AND PROPOFOL DRIP. REPORT GIVEN TO ICU NURSE MARQUES. PT TO BE TRANSFERRED SOON TO ROOM 261.
[2016-07-21] MEDS ORDERED: IV SET PRIMARY PUMP SET 1 EA INFUS.SET MC ONE (12:54)
[2016-07-21] MEDS ORDERED: PROPOFOL 100 ML IV PRN (13:00)
[2016-07-21] MEDS ORDERED: LORAZEPAM INJ 2 MG/ML VIAL IV ONE (13:00)
[2016-07-21] MEDS ORDERED: AMIODARONE 900 MG in IV D5W 482 ML IV PRN (13:00)
[2016-07-21] MEDS ORDERED: ONDANSETRON HCL/PF 4 MG/2 ML VIAL IV PRN (13:00)
[2016-07-21] MEDS ORDERED: AMIODARONE 150 MG in IV D5W 100 ML IV ONE (13:00)
--- NOTE | 2016-07-21 13:00 | NUR ---
ECHO VASC TECH NOTES RECEIVED PATIENT FROM [facility] WITH CC OF UNCONTROL AFIB 120'S , AOX3 PORTUGUESE SPEKING , MOUTHING WORDS , NOT IN ACUTE DISTRESS , RESPIRATIONS EVEN AND UNLABORED , SPO2 OF 100% VIA MECHANICAL VENTILATOR WITH AC MODE RATE 22 , TV 500 FIO2 60% AND PEEP OF 5 TOLERATING WELL , ST 120'S ON BEDSIDE MONITOR , GT PATENT AND INTACT CLAMPED , FEEDING HELD PT HAS EPISODES OF VOMITING , FC DRAINING WELL VIA GRAVITY WITH CLEAR YELLOW URINE , ON [place] BED , DVT PUMPS IN PLACE , YUE MIDLINE WITH NS @ TKO , ALL NEEDS ATTENDED , BED ON LOW AND LOCKED POSITION , SIDE RAILS X2 ,CALL LIGHT WITHIN REACH , HOB @ 45 WILL CONTINUE TO MONITOR .
--- NOTE | 2016-07-21 13:30 | NUR ---
SOLDERER TORCH NOTES AMIODARONE BOLUS AND DRIP ADMINISTERED , SR 90'S ON BEDSIDE MONITOR , WILL CALL DR GREGG TO VERIFY AMIODARONE DRIP ORDER PT IS ON NSR 90'S WILL CONTINUE TO MONITOR
--- NOTE | 2016-07-21 13:30 | NUR ---
KERSE[place] DEPARTMENT SUPERVISOR NOTES DR PATTERSON AT BEDSIDE , NOTIFIED PT IS TOLERATING CURRENT VENTILATOR SETTINGS WITH NO S/S OF DISTRESS , DISCUSSED ABG AND CHEST XRAY RESULT RESULT , FOLLOWED UP IF HE WANTS TO ORDER REPEAT CHEST XRAY AND ABG , , VERIFIED PROPOFOL ORDER PT IS MORE CALM AT THIS TIME , PER MD BULLOCK PROPOFOL AND START PT ON ATIVAN 1MG Q3 PRN ,
[2016-07-21 14:27] LABS: ABG BASE EXCESS -5.6 mmol/L; ABG OXYGEN SATURATION 91.9 % (92.0-98.5); ABG PCO2 45.8 mmHg (35.0-45.0); ABG PH 7.279 (7.350-7.450); ABG PO2 72.3 mmHg (75.0-100.0); AaDO2 305.1 mmHg; COHb 0.8 % (0.5-1.5); MetHb 0.9 % (0.0-1.5); O2Hb 90.3 % (94.0-97.0); PEEP,BG 5 cm H2O; SITE, ABG Left Radial; VT, ABG 500 mL
[2016-07-21] MEDS: CEFEPIME 2 GM in IV D5W 100 ML IV SCH (14:58)
[2016-07-21] MEDS ORDERED: ALBUTEROL FS 2.5 MG/3 ML VIAL.NEB NEB PRN (15:00)
[2016-07-21] MEDS ORDERED: IPRATROPIUM NEB FS 0.5 MG/2.5 ML AMPUL.NEB NEB PRN (15:00)
[2016-07-21] MEDS: methylPREDNISolone SOD SUCC 125 MG/2ML VIAL IV SCH ×2 (16:59→21:47)
[2016-07-21] MEDS: LORAZEPAM INJ 2 MG/ML VIAL IV PRN ×2 (17:48→21:49)
--- NOTE | 2016-07-21 18:31 | NUR ---
ENVIRONMENTAL INSPECTOR NOTES DR GREGG AT BEDSIDE , NOTIFIED PT ON AMIODARONE DRIP @ 1MG/MIN , SR 85 ON BEDSIDE MONITOR , NOT IN CUTE DISTRESS , V/S STABLE , PER MD BULLOCK AMIODARONE DRIP , AND HE WILL CHANGE AMIODARONE TO P.O 200MG Q12 , ORDERS CARRIED OUT , WILL CONTINUE TO MONITOR
[2016-07-21] MEDS: ENOXAPARIN SODIUM 30 MG/0.3 ML DISP.SYRIN SQ SCH (21:48)
[2016-07-21] MEDS: ATORVASTATIN 40 MG TABLET GT SCH (21:49)
[2016-07-22] VITALS (65 sets, daily range): BP systolic 65–144; BP diastolic 35–95
--- NOTE | 2016-07-22 | NUR ---
REC'D PT. VENTED & AWAKE/PULLING ON WIRES & TUBNG, BUT NOT HARD. PT. APPEARS ANXIOUS. ATIVAN ONE MG, SLOW IVP ADMINISTERED AT 21:40 PM. PT. CALMED DOWN & WAS RESTING W/EYES CLOSED IMMED. AFTER ATIVAN GIVEN. SWARTZ CATH TO GRAVITY W/GOOD UOP. MN-BS WAS #233. PT. COVERED W/4U OF REG.INS. MN TEMP. AT 99.5. PT.IS WARM TO TOUCH. LUE MIDLINE & PIV HAVE ALL PORTS PATENT TO FLUSH. ALL PULSES PALPABLE X 4 EXT. PEDALS ARE VERY WEAK TO PALPATE. PEG SITE IS VERY RED AROUND INSERTION SITE. TRACH CARE PROVIDED. HEART MONITOR SHOWS SR/BBB IN V LEAD. ALL OTHER LEADS LOOK LIKE PT'S TRYING TO GO INTO AFIB. MONITORED CLOSELY.
[2016-07-22] MEDS: ACETYLCYSTEINE 10% SOLN 400 MG/4 ML VIAL NEB SCH ×4 (00:35→19:36)
[2016-07-22] MEDS: COLISTIMETHATE SODIUM 150 MG VIAL NEB SCH ×3 (00:35→20:49)
[2016-07-22] MEDS: IPRATROPIUM NEB FS 0.5 MG/2.5 ML AMPUL.NEB NEB SCH ×4 (00:35→19:36)
[2016-07-22] MEDS: ALBUTEROL FS 2.5 MG/3 ML VIAL.NEB NEB SCH ×4 (00:36→19:36)
[2016-07-22 04:42] LABS: HEMATOCRIT 26 % (33-45); HEMOGLOBIN 8.2 g/dL (11.5-14.8); LYMPHOCYTES # (AUTO) 0.5 /CMM (0.8-4.8); LYMPHOCYTES % (AUTO) 3.7 % (20.0-44.0); MEAN CORPUSCULAR HEMOGLOBIN 29 PG (26.0-33.0); MEAN CORPUSCULAR HGB CONC 32 g/dl (31.0-36.0); MEAN CORPUSCULAR VOLUME 90 fL (82-100); MONOCYTES # (AUTO) 0.1 /CMM (0.1-1.30); MONOCYTES % (AUTO) 0.7 % (2.0-12.0); NEUTROPHILS # (AUTO) 13.6 /CMM (1.8-8.9); NEUTROPHILS % (AUTO) 95.6 % (43.0-81.0); PLATELET COUNT (AUTO) 276 /CMM (150-450); RDW COEFFICIENT OF VARIATION 18.6 (11.5-15.0); RED BLOOD CELL COUNT(AUTO) 2.84 MIL/uL (4.0-5.2); WHITE BLOOD COUNT (AUTO) 14.2 K/uL (4.3-11.0)
[2016-07-22 05:07] LABS: POTASSIUM 3.5 mmol/L (3.5-5.1)
[2016-07-22] MEDS: methylPREDNISolone SOD SUCC 125 MG/2ML VIAL IV SCH ×3 (05:21→21:27)
[2016-07-22] MEDS: INSULIN REGULAR, HUMAN 100 UNIT/ML 3 ML VIAL SQ PRN ×4 (05:24→23:22)
[2016-07-22] MEDS: BLOOD SUGAR DIAGNOSTIC 1 EACH STRIP IN SCH ×4 (05:25→23:27)
--- NOTE | 2016-07-22 06:00 | NUR ---
DOCTOR OF DENTAL SURGERY - COMP. BEDBATH ADM. AT 03:00AM. ORAL,HIGINIO,VENT,PEG & SKIN CARE ADM. NO CHANGES FROM PREVIOUS ASSESSMENT. PT. HAD LABS DRAWN & PCXR DONE. NO CHANGES FROM PREVIOUS ASSESSMENTS. CONT.POC.
[2016-07-22] MEDS ORDERED: DOSING PER PHARMACY-AMIKACI IV XX PRN (07:00)
--- NOTE | 2016-07-22 07:41 | NUR ---
INITIAL DIRECTOR OF FINANCIAL REPORTING NOTE' RCVD PT AWAKE AND ALERT SHOWING NO S/O DISTRESS OR C/O PAIN. SR ON TELE TOLERATING ORDERED VENT SETTINGS. SWARTZ IN PLACE DRAINING CLEAR, YELLOW URINE. PEG PLACEMENT VERIFIED BY AUSCULTATION. TOLERATING TUBE FEED WELL. NO RESIDUAL OBSERVED. IV SITES C/D/I/PATENT. NO S/O INFILTRATION OR PHLEBITIS OBSERVED IVF INFUSING. WILL CONTINUE TO MONITOR PT FOR SAFETY AND COMFORT. CALL LIGHT WITHIN REACH. BED IN LOW AND LOCKED POSITION.
[2016-07-22] MEDS ORDERED: FEE PK DOSING 1 MIN EA MC ONE (09:09)
[2016-07-22] MEDS: PANTOPRAZOLE 40 MG/PACK PACK GT SCH (09:41)
[2016-07-22] MEDS: LACTOBACILLUS RHAMNOSUS GG 1 EACH CAP.SPRINK GT SCH (09:41)
[2016-07-22] MEDS: SERTRALINE HCL 25 MG TABLET GT SCH (09:42)
[2016-07-22] MEDS: METOLAZONE 2.5 MG TABLET PO SCH (09:42)
[2016-07-22] MEDS: FERROUS SULFATE (325 MG) 325 MG/TAB TABLET GT SCH (09:42)
[2016-07-22] MEDS: BUMETANIDE (1 MG) 1 MG TABLET GT SCH (09:42)
[2016-07-22] MEDS: AMIODARONE HCL 200 MG TABLET GT SCH ×2 (09:42→21:26)
[2016-07-22] MEDS: LINAGLIPTIN 5 MG TABLET GT SCH (09:42)
[2016-07-22] MEDS: VIT B CMPLX 3/FA/VIT C/BIOTIN 1 TAB TABLET GT SCH (09:42)
[2016-07-22] MEDS: HYDROGEL DRESSING 90 GM TUBE TP SCH (09:43)
[2016-07-22] MEDS: Z GUARD REMEDY 2 OZ OINT TP SCH ×2 (09:43→17:12)
[2016-07-22] MEDS ORDERED: SECONDARY IV SET 1 EA INFUS.SET MC ONE (09:43)
[2016-07-22] MEDS: CHOLESTYRAMINE/ASPARTAME 4 G/PKT PACKET GT SCH (09:43)
[2016-07-22] MEDS: IV NS 0.9% 250 ML IV PRN (09:44)
[2016-07-22] MEDS: AMIKACIN 500 MG in IV D5W 100 ML IV SCH (09:48)
[2016-07-22 10:22] LABS: ABG BASE EXCESS 1.6 mmol/L; ABG OXYGEN SATURATION 97.1 % (92.0-98.5); ABG PCO2 36.2 mmHg (35.0-45.0); ABG PH 7.462 (7.350-7.450); ABG PO2 101.7 mmHg (75.0-100.0); AaDO2 286.3 mmHg; COHb 0.8 % (0.5-1.5); MetHb 1.5 % (0.0-1.5); O2Hb 94.9 % (94.0-97.0); PEEP,BG 5 cm H2O; SITE, ABG Left Radial; VT, ABG 500 mL
[2016-07-22] MEDS: BUMETANIDE INJ 2 MG in IV NS 0.9% 32 ML IV SCH ×2 (10:30→11:18)
[2016-07-22] MEDS ORDERED: IV SET PRIMARY PUMP SET 1 EA INFUS.SET MC ONE (11:12)
--- NOTE | 2016-07-22 11:20 | NUR ---
LIQUEFIED NATURAL GAS OPERATOR NOTE DR. PATTERSON AT PT'S BEDSIDE INFORMED HIM THAT HAD ORDERED BUMEX DRIP IN ADDITION OF DAILY DIURETICS. PARAMETER TO HOLD IF SBP <110. DR. PATTERSON RECOMMENDED TO HOLD BUMEX IV IF SBP<90. BUMEX ADMINISTERED ORDERED.
[2016-07-22] MEDS ORDERED: IV NS 0.9% 250 ML IV PRN ×2 (12:30)
[2016-07-22] MEDS ORDERED: IV NS 0.9% 250 ML IV ONE (12:30)
[2016-07-22] MEDS ORDERED: NOREPINEPHRINE 16 MG in IV D5W 500 ML IV PRN (12:30)
--- NOTE | 2016-07-22 13:15 | NUR ---
POST OFFICE MARKUP CLERK NOTE DR. PATTERSON IN UNIT INFORMED THAT PT'S SBP DROPPED TO 79 AND UPON RE-CJECKING REMAINS IN THE 80s. BUMEX WAS STOPPED. HE ORDERED NS BOLUS 250ML ONE AT A TIME TO KEEP SBP >90. IF INEFFECTIVE THEN START PT ON LEVO. WILL CONTINUE TO MONITOR PT FIRST BOLUS GIVEN.
[2016-07-22] MEDS: CEFEPIME 2 GM in IV D5W 100 ML IV SCH (14:00)
[2016-07-22] MEDS: GLYTROL 1,000 ML BAG GT PRN (17:21)
--- NOTE | 2016-07-22 17:39 | NUR ---
FRENCH POLISHER NOTE 250 ML NS BOLUS 2/3 BEING GIVEN PT'S BP85/47 87 WHEN SLEEPING. WILL CONTINUE TO MONITOR.
--- NOTE | 2016-07-22 18:39 | NUR ---
ART EDUCATOR NOTE 250 ML NS 3/3 BOLUS GIVEN SBP BELOW 90. WILL CONTINUE TO MONITOR. LEVO TO BE STARTED IF PT'S SBP CONTINUES TO BE BELOW 90.
--- NOTE | 2016-07-22 18:40 | NUR ---
TEAM ASSISTANT NOTE PT SLEEPING EASILY AROUSED TO TOUCH SHOWING NO S/O DISTRESS OR PAIN. TOLERATING ORDERED VENT SETTINGS. PEG PLACEMENT VERIFIED. SWARTZ IN PLACE DRAINING CLEAR URINE. V SITES C/D/I/PATENT. NO S/O INFILTRATION OR PHLEBITIS OBSERVED IVF INFUSING. PT'S CARE WILL BE ENDORSED TO CONTROL OFFICER MANAGER RN AT CHANGE OF SHIFT. BED IN LOW AND LOCKED POSITION. CALL LIGHT WITHIN REACH.
[2016-07-22] MEDS: ATORVASTATIN 40 MG TABLET GT SCH (21:28)
[2016-07-22] MEDS: ENOXAPARIN SODIUM 30 MG/0.3 ML DISP.SYRIN SQ SCH (21:29)
[2016-07-23] VITALS (55 sets, daily range): BP systolic 102–159; BP diastolic 38–94
[2016-07-23] MEDS: IPRATROPIUM NEB FS 0.5 MG/2.5 ML AMPUL.NEB NEB SCH ×4 (01:18→19:13)
[2016-07-23] MEDS: ALBUTEROL FS 2.5 MG/3 ML VIAL.NEB NEB SCH ×4 (01:18→19:13)
[2016-07-23] MEDS: ACETYLCYSTEINE 10% SOLN 400 MG/4 ML VIAL NEB SCH ×4 (01:19→19:12)
[2016-07-23] MEDS: methylPREDNISolone SOD SUCC 125 MG/2ML VIAL IV SCH ×3 (04:22→21:13)
[2016-07-23] MEDS: INSULIN REGULAR, HUMAN 100 UNIT/ML 3 ML VIAL SQ PRN ×4 (04:29→23:53)
[2016-07-23] MEDS: BLOOD SUGAR DIAGNOSTIC 1 EACH STRIP IN SCH ×4 (04:30→23:53)
[2016-07-23 04:53] LABS: ALBUMIN 2.4 g/dL (3.4-5.0); CALCIUM, SERUM 9.2 mg/dL (8.5-10.1); CREATININE 2.4 mg/dL (0.6-1.3); MAGNESIUM 1.4 mg/dL (1.8-2.4); POTASSIUM 3.3 mmol/L (3.5-5.1)
[2016-07-23 04:56] LABS: BASOPHILS % (AUTO) 0.1 % (0.0-2.0); HEMATOCRIT 30 % (33-45); HEMOGLOBIN 9.6 g/dL (11.5-14.8); LYMPHOCYTES # (AUTO) 0.7 /CMM (0.8-4.8); LYMPHOCYTES % (AUTO) 2.9 % (20.0-44.0); MEAN CORPUSCULAR HEMOGLOBIN 29 PG (26.0-33.0); MEAN CORPUSCULAR HGB CONC 32 g/dl (31.0-36.0); MEAN CORPUSCULAR VOLUME 90 fL (82-100); MONOCYTES % (AUTO) 4.5 % (2.0-12.0); NEUTROPHILS # (AUTO) 21.4 /CMM (1.8-8.9); NEUTROPHILS % (AUTO) 92.5 % (43.0-81.0); PLATELET COUNT (AUTO) 482 /CMM (150-450); RED BLOOD CELL COUNT(AUTO) 3.28 MIL/uL (4.0-5.2); WHITE BLOOD COUNT (AUTO) 23.1 K/uL (4.3-11.0)
--- NOTE | 2016-07-23 06:40 | NUR ---
METAL FURNITURE POLISHER - REC'D PT. ON VENT/TRACH W/PATENT AIRWAY. AM LABS SHOW GLUCOSE AT #355 AT 4AM. THE ACCUCHECK SHOWED #340. PT. COVERED. LEVOPHED GTT. WAS STARTED AT 21:20 LAST NIGHT FOR SBP'S IN THE 80'S. RN WAS ABLE TO SHUT OFF LEVOPHED GTT. AT 5AM. AFEBRILE. PT. ADM. A COMP. BEDBATH AT 4AM, NO BM. ORAL,VENT,TRACH,PEG,HIGINIO & SKIN CARE GIVEN. SWARTZ CATH ONLY PUT OUT 315 CC FOR 12 HR. SHIFT. CONT. POC.
--- NOTE | 2016-07-23 07:39 | NUR ---
INITIAL ACCOUNTING RECRUITER NOTE RCVD PT SLEEPING EASILY AROUSED TO TOUCH, NO S/O DISTRESS OR C/O PAIN REPORTED. ST ON TELE. TOLERATING ORDERED VENT SETTINGS. PEG PLACEMENT VERIFIED BY AUSCULTATION. NO RESIDUAL OBSERVED. SWARTZ DRAINING YELLOW URINE. IV SITES C/D/I/PATENT. NO S/O INFILTRATION OBSERVED IVF INFUSING. WILL CONTINUE TO MONITOR PT FOR SAFETY AND COMFORT. CALL LIGHT WITHIN REACH. BED IN LOW AND LOCKED POSITION. BED ALARM ON.
[2016-07-23] MEDS ORDERED: POTASSIUM CHLORIDE 20 MEQ POWDER PACKET GT ONE (08:30)
[2016-07-23] MEDS: FERROUS SULFATE (325 MG) 325 MG/TAB TABLET GT SCH (08:55)
[2016-07-23] MEDS: SERTRALINE HCL 25 MG TABLET GT SCH (08:55)
[2016-07-23] MEDS: LACTOBACILLUS RHAMNOSUS GG 1 EACH CAP.SPRINK GT SCH (08:55)
[2016-07-23] MEDS: VIT B CMPLX 3/FA/VIT C/BIOTIN 1 TAB TABLET GT SCH (08:55)
[2016-07-23] MEDS: CHOLESTYRAMINE/ASPARTAME 4 G/PKT PACKET GT SCH (08:55)
[2016-07-23] MEDS: METOLAZONE 2.5 MG TABLET PO SCH (08:56)
[2016-07-23] MEDS: PANTOPRAZOLE 40 MG/PACK PACK GT SCH (08:56)
[2016-07-23] MEDS: AMIODARONE HCL 200 MG TABLET GT SCH ×2 (08:56→21:12)
[2016-07-23] MEDS: LINAGLIPTIN 5 MG TABLET GT SCH (08:57)
[2016-07-23] MEDS: HYDROGEL DRESSING 90 GM TUBE TP SCH (08:58)
[2016-07-23] MEDS: Z GUARD REMEDY 2 OZ OINT TP SCH ×2 (08:58→17:28)
[2016-07-23] MEDS: AMIKACIN 500 MG in IV D5W 100 ML IV SCH (09:40)
[2016-07-23] MEDS ORDERED: SECONDARY IV SET 1 EA INFUS.SET MC ONE (10:55)
[2016-07-23] MEDS: Magnesium 1GM/D5W 100ML PREMIX 100 ML IV SCH ×2 (11:01→12:07)
[2016-07-23] MEDS: COLISTIMETHATE SODIUM 150 MG VIAL NEB SCH ×2 (13:12→21:04)
--- NOTE | 2016-07-23 13:16 | NUR ---
RN RESOURCE NURSE NOTE SPOKE WITH DR. PATTERSON IN UNIT INFORMED HIM THAT PT'S UOP HAS BEEN VERY LOW THIS MORNING RANGING FROM 10-20 ML EVERY 2 [address]RS[address] RC[address] ORDER TO START PT ON IVF. WILL CONTINUE TO MONITOR.
[2016-07-23] MEDS: IV NS 0.9% 1,000 ML IV PRN (13:28)
[2016-07-23] MEDS ORDERED: IV NS 0.9% 1,000 ML BAG IV PRN (13:30)
[2016-07-23] MEDS: CEFEPIME 2 GM in IV D5W 100 ML IV SCH (14:29)
[2016-07-23 15:01] LABS: APPEARANCE,URINE CLEAR (CLEAR); BILIRUBIN,URINE NEGATIVE (NEGATIVE); BLOOD, URINE TRACE-INTA Ery/uL (NEGATIVE); COLOR,URINE YELLOW (YELLOW); KETONES,URINE TRACE (NEGATIVE); LEUKOCYTE ESTERASE ,URINE NEGATIVE (NEGATIVE); NITRITE, URINE NEGATIVE (NEGATIVE); PROTEIN,URINE TRACE mg/dl (NEGATIVE); UGLUCOSE NEGATIVE (NEGATIVE); UROBILINOGEN,URINE 0.2 EU/dL (0.2)
[2016-07-23 15:47] LABS: BACTERIA,URINE 1+ /HPF (None Seen); CALCIUM OXALATE CRYSTALS,UR Rare /HPF (None Seen); HYALINE CASTS, URINE Rare /LPF (None Seen); MUCUS,URINE Few /LPF (None Seen); SQUAMOUS EPITHELIAL CELL,UR 0-2 /HPF (None Seen)
[2016-07-23 16:46] LABS: EOSINOPHIL,URINE None Seen
[2016-07-23] MEDS: GLYTROL 1,000 ML BAG GT PRN (17:28)
--- NOTE | 2016-07-23 18:19 | NUR ---
COST ENGINEER NOTE PT AWAKE AND ALERT SHOWING NO S/O DISTRESS OR C/O PAIN. SR/ST ON TELE MONITOR. TOLERATING ORDERED VENT SETTINGS WELL. PEG PLACEMENT VERIFIED BY AUSCULTATION. TOLERATING TUBE FEEDING WELL. NO RESIDUAL OBSERVED. IV SITES C/D/I/PATENT. NO S/O INFILTRATION OBSERVED IVF INFUSING. CALL LIGHT WITHIN REACH. BED IN LOW AND LOCKED POSITION. BED ALARM ON. PT'S CARE WILL BE ENDORSED TO SILVERING DEPARTMENT SUPERVISOR RN AT CHANGE OF SHIFT.
[2016-07-23 18:58] LABS: CREATININE, URINE 126.9 MG/DL (30.0-125.0)
--- NOTE | 2016-07-23 20:00 | NUR ---
ICU/RN- PT IN BED A/OX3, CAN MOUTH WORDS TO MAKE NEEDS KNOWN. ON MONITOR W/ ST - HR -100S. PT IS TRACHED W/ SHILEY 6XLT W/ VENT SETTINGS OF AC 22, TV 500, FIO2 45%, P 0 . RESP EVEN AND UNLABORED. SUCTIONED TRACH FOR CLEARANCE. MID LINE IN YUE PATENT AND INTACT W/ NS @ 100ML/HR. R W 20 G, PATENT AND INTACT. GT IN PLACE. NO RESIDUAL NOTED. SWARTZ IN PLACE W/ CLEAR AND YELLOW URINE DRAINING WELL TO GRAVITY. REPOSITIONED PT FOR COMFORT. BED LOW AND IN LOCKED POSITION. WILL MONITOR PT ACCORDINGLY.
[2016-07-23] MEDS: ATORVASTATIN 40 MG TABLET GT SCH (21:13)
[2016-07-23] MEDS: ENOXAPARIN SODIUM 30 MG/0.3 ML DISP.SYRIN SQ SCH (21:14)
[2016-07-23] MEDS ORDERED: AMIKACIN 250 MG/ML VIAL IM SCH (22:00)
[2016-07-24] VITALS (46 sets, daily range): BP systolic 46–130; BP diastolic 30–98
[2016-07-24] MEDS: ACETYLCYSTEINE 10% SOLN 400 MG/4 ML VIAL NEB SCH ×4 (00:36→19:19)
[2016-07-24] MEDS: IPRATROPIUM NEB FS 0.5 MG/2.5 ML AMPUL.NEB NEB SCH ×4 (00:36→19:20)
[2016-07-24] MEDS: ALBUTEROL FS 2.5 MG/3 ML VIAL.NEB NEB SCH ×4 (01:04→19:20)
[2016-07-24] MEDS ORDERED: IV SET PRIMARY PUMP SET 1 EA INFUS.SET MC ONE (03:09)
[2016-07-24 05:10] LABS: HEMATOCRIT 27 % (33-45); HEMOGLOBIN 8.6 g/dL (11.5-14.8); LYMPHOCYTES # (AUTO) 0.4 /CMM (0.8-4.8); LYMPHOCYTES % (AUTO) 2.4 % (20.0-44.0); MEAN CORPUSCULAR HEMOGLOBIN 29 PG (26.0-33.0); MEAN CORPUSCULAR HGB CONC 32 g/dl (31.0-36.0); MEAN CORPUSCULAR VOLUME 91 fL (82-100); MONOCYTES # (AUTO) 0.7 /CMM (0.1-1.30); MONOCYTES % (AUTO) 4.2 % (2.0-12.0); NEUTROPHILS # (AUTO) 15.6 /CMM (1.8-8.9); NEUTROPHILS % (AUTO) 93.4 % (43.0-81.0); PLATELET COUNT (AUTO) 326 /CMM (150-450); RDW COEFFICIENT OF VARIATION 18.9 (11.5-15.0); RED BLOOD CELL COUNT(AUTO) 2.99 MIL/uL (4.0-5.2); WHITE BLOOD COUNT (AUTO) 16.7 K/uL (4.3-11.0)
[2016-07-24 05:27] LABS: CREATININE 2.3 mg/dL (0.6-1.3); POTASSIUM 3.7 mmol/L (3.5-5.1)
[2016-07-24] MEDS: BLOOD SUGAR DIAGNOSTIC 1 EACH STRIP IN SCH ×4 (05:43→23:27)
[2016-07-24] MEDS: INSULIN REGULAR, HUMAN 100 UNIT/ML 3 ML VIAL SQ PRN ×4 (05:43→23:28)
[2016-07-24] MEDS: methylPREDNISolone SOD SUCC 125 MG/2ML VIAL IV SCH ×3 (05:45→20:26)
--- NOTE | 2016-07-24 06:42 | NUR ---
ICU/RN- ALL NEEDS ATTENDED AND MET, NAD NOTED AT THIS TIME. WILL ENDORSE TO AM SHIFT FOR CONTINUATION OF CARE.
--- NOTE | 2016-07-24 07:00 | NUR ---
ICU INITIAL NOTES RECEIVED PT IN BED, ABLE TO MOUTH WORDS, ABLE TO MAKE NEEDS KNOWN, PT IS ON [facility] VENT SETTINGS AC 22 TV 500 FIO2 45% PEEP 0 SHILEY 6XLT, SATING WELL, NO S/S OF RESP. DISTRESS OR SOB, PT IS ON TELE SHOWING SR W/ OCC PVC IN 80'S, NO C/O OF CHEST PAIN OR DISCOMFORT AT THIS TIME, PT HAS G TUBE INTACT/PATENT, RUNNING GLYTROL @ 40 ML/HR, TOLERATING WELL, NO RESIDUALS NOTED AT THIS TIME, PT HAS YUE MIDLINE #18G, RUNNING NS @ 100ML/HR, C/D/I/PATENT, FLUSHING WELL, R WRIST #20G, SL, C/D/I/PATENT, FLUSHING WELL, NO S/S OF INFECTION/ INFILTRATION NOTED AT THIS TIME, PT IS NOTED WITH SKIN ISSUES, ALL NEEDS MET AT THIS TIME, CALL LIGHT WITHIN EASY REACH, ALL SAFETY MEASURES IN PLACE AT ALL TIMES, WILL MONITOR PT CLOSELY FOR CHANGES
[2016-07-24] MEDS: VIT B CMPLX 3/FA/VIT C/BIOTIN 1 TAB TABLET GT SCH (08:01)
[2016-07-24] MEDS: Z GUARD REMEDY 2 OZ OINT TP SCH ×2 (08:01→16:59)
[2016-07-24] MEDS: HYDROGEL DRESSING 90 GM TUBE TP SCH (08:01)
[2016-07-24] MEDS: CHOLESTYRAMINE/ASPARTAME 4 G/PKT PACKET GT SCH (08:01)
[2016-07-24] MEDS: METOLAZONE 2.5 MG TABLET PO SCH (08:01)
[2016-07-24] MEDS: LACTOBACILLUS RHAMNOSUS GG 1 EACH CAP.SPRINK GT SCH (08:02)
[2016-07-24] MEDS: FERROUS SULFATE (325 MG) 325 MG/TAB TABLET GT SCH (08:02)
[2016-07-24] MEDS: SERTRALINE HCL 25 MG TABLET GT SCH (08:02)
[2016-07-24] MEDS: AMIODARONE HCL 200 MG TABLET GT SCH ×2 (08:02→20:27)
[2016-07-24] MEDS: PANTOPRAZOLE 40 MG/PACK PACK GT SCH (08:02)
[2016-07-24] MEDS: LINAGLIPTIN 5 MG TABLET GT SCH (08:03)
[2016-07-24] MEDS ORDERED: FUROSEMIDE 40 MG/4 ML VIAL IV ONE (09:30)
[2016-07-24] MEDS ORDERED: IV NS 0.9% 1,000 ML IV ONE (09:30)
[2016-07-24] MEDS ORDERED: IV NS 0.9% 1,000 ML BAG IV ONE (09:30)
[2016-07-24 09:38] LABS: ABG BASE EXCESS -3.9 mmol/L; ABG OXYGEN SATURATION 96.7 % (92.0-98.5); ABG PCO2 36.7 mmHg (35.0-45.0); ABG PH 7.372 (7.350-7.450); AaDO2 178.1 mmHg; COHb 0.3 % (0.5-1.5); MetHb 1.1 % (0.0-1.5); O2Hb 95.3 % (94.0-97.0); PEEP,BG 0 cm H2O; SITE, ABG Left Radial; VT, ABG 500 mL
[2016-07-24] MEDS: COLISTIMETHATE SODIUM 150 MG VIAL NEB SCH ×2 (11:12→21:49)
--- NOTE | 2016-07-24 12:20 | NUR ---
ICU NOTES BS 330, 8 UNITS
[2016-07-24] MEDS: GLYTROL 1,000 ML BAG GT PRN (13:44)
[2016-07-24] MEDS: IV NS 0.9% 1,000 ML IV PRN ×2 (13:44)
[2016-07-24] MEDS: CEFEPIME 2 GM in IV D5W 100 ML IV SCH (14:18)
--- NOTE | 2016-07-24 17:05 | NUR ---
RN NOTES BS 339, 8 UNITS GIVEN
[2016-07-24] MEDS: LINEZOLID 600 MG TABLET PO SCH (20:26)
[2016-07-24] MEDS: ENOXAPARIN SODIUM 30 MG/0.3 ML DISP.SYRIN SQ SCH (20:28)
[2016-07-24] MEDS ORDERED: SECONDARY IV SET 1 EA INFUS.SET MC ONE (21:55)
[2016-07-24] MEDS: ATORVASTATIN 40 MG TABLET GT SCH (22:02)
[2016-07-24] MEDS: AMIKACIN 300 MG in IV D5W 100 ML IV SCH (22:02)
[2016-07-25] VITALS (30 sets, daily range): BP systolic 94–121; BP diastolic 51–68
[2016-07-25] MEDS: ALBUTEROL FS 2.5 MG/3 ML VIAL.NEB NEB SCH ×5 (01:36→20:36)
[2016-07-25] MEDS: ACETYLCYSTEINE 10% SOLN 400 MG/4 ML VIAL NEB SCH ×5 (01:36→20:37)
[2016-07-25] MEDS: IPRATROPIUM NEB FS 0.5 MG/2.5 ML AMPUL.NEB NEB SCH ×5 (01:36→20:36)
[2016-07-25] MEDS: IV NS 0.9% 1,000 ML IV PRN ×2 (02:53→15:47)
[2016-07-25 04:41] LABS: BASOPHILS % (AUTO) 0.1 % (0.0-2.0); HEMATOCRIT 27 % (33-45); HEMOGLOBIN 8.5 g/dL (11.5-14.8); LYMPHOCYTES # (AUTO) 0.4 /CMM (0.8-4.8); LYMPHOCYTES % (AUTO) 2.7 % (20.0-44.0); MEAN CORPUSCULAR HEMOGLOBIN 29 PG (26.0-33.0); MEAN CORPUSCULAR HGB CONC 32 g/dl (31.0-36.0); MEAN CORPUSCULAR VOLUME 90 fL (82-100); MONOCYTES # (AUTO) 0.5 /CMM (0.1-1.30); MONOCYTES % (AUTO) 3.4 % (2.0-12.0); NEUTROPHILS # (AUTO) 14.1 /CMM (1.8-8.9); NEUTROPHILS % (AUTO) 93.8 % (43.0-81.0); PLATELET COUNT (AUTO) 311 /CMM (150-450); RDW COEFFICIENT OF VARIATION 18.7 (11.5-15.0); RED BLOOD CELL COUNT(AUTO) 2.96 MIL/uL (4.0-5.2)
[2016-07-25 05:04] LABS: ALBUMIN 2.2 g/dL (3.4-5.0); BILIRUBIN,TOTAL 0.3 mg/dL (0.2-1.0); CALCIUM, SERUM 8.4 mg/dL (8.5-10.1); CREATININE 2.4 mg/dL (0.6-1.3); MAGNESIUM 1.7 mg/dL (1.8-2.4); POTASSIUM 3.9 mmol/L (3.5-5.1); TOTAL PROTEIN, SERUM 5.9 g/dL (6.4-8.2)
[2016-07-25] MEDS: BLOOD SUGAR DIAGNOSTIC 1 EACH STRIP IN SCH ×4 (05:38→17:13)
[2016-07-25] MEDS: methylPREDNISolone SOD SUCC 125 MG/2ML VIAL IV SCH ×2 (05:38→16:15)
[2016-07-25] MEDS: INSULIN REGULAR, HUMAN 100 UNIT/ML 3 ML VIAL SQ PRN ×3 (05:40→17:08)
[2016-07-25] MEDS: LINEZOLID 600 MG TABLET PO SCH ×2 (08:40→21:39)
[2016-07-25] MEDS: VIT B CMPLX 3/FA/VIT C/BIOTIN 1 TAB TABLET GT SCH (08:40)
[2016-07-25] MEDS: AMIODARONE HCL 200 MG TABLET GT SCH ×2 (08:44→21:39)
[2016-07-25] MEDS: LINAGLIPTIN 5 MG TABLET GT SCH (08:45)
[2016-07-25] MEDS: CHOLESTYRAMINE/ASPARTAME 4 G/PKT PACKET GT SCH (08:45)
[2016-07-25] MEDS: FERROUS SULFATE (325 MG) 325 MG/TAB TABLET GT SCH (08:45)
[2016-07-25] MEDS: SERTRALINE HCL 25 MG TABLET GT SCH (08:45)
[2016-07-25] MEDS: PANTOPRAZOLE 40 MG/PACK PACK GT SCH (08:45)
[2016-07-25] MEDS: LACTOBACILLUS RHAMNOSUS GG 1 EACH CAP.SPRINK GT SCH (08:45)
[2016-07-25] MEDS: Z GUARD REMEDY 2 OZ OINT TP SCH ×2 (08:46→17:12)
[2016-07-25] MEDS: METOLAZONE 2.5 MG TABLET PO SCH (08:46)
[2016-07-25] MEDS: HYDROGEL DRESSING 90 GM TUBE TP SCH (08:46)
[2016-07-25] MEDS: COLISTIMETHATE SODIUM 150 MG VIAL NEB SCH (09:00)
[2016-07-25] MEDS ORDERED: Magnesium 1GM/D5W 100ML PREMIX 100 ML IV SCH (10:30)
[2016-07-25] MEDS ORDERED: SECONDARY IV SET 1 EA INFUS.SET MC ONE ×2 (11:17→15:41)
[2016-07-25] MEDS ORDERED: IV NS 0.9% 500 ML IV ONE (11:30)
--- NOTE | 2016-07-25 12:00 | NUR ---
ICU noted - Blood sugar Accucheck 430 for noon, informed Dr. Rodriguez and ordered to change sliding scale to moderate from mild, start lantus 10 units SQ. Replacement of magnesium given 1 gm IV, 500NS bolus given over 2 hours and resume fluids after.
[2016-07-25] MEDS ORDERED: DEXTROSE 50%-WATER 50 ML DISP.SYRIN IV PRN (12:30)
[2016-07-25] MEDS ORDERED: INSULIN GLARGINE, 100 UNIT/ML CARTRIDGE SQ SCH (12:30)
[2016-07-25] MEDS ORDERED: IV SET PRIMARY PUMP SET 1 EA INFUS.SET MC ONE (15:13)
--- NOTE | 2016-07-25 15:27 | NUR ---
ICU notes Transfer to [facility] Patient transferred to [facility] 110. vitals stable. no distress. continued on current treatment per MD. Low urine output noted, MD aware. Patient nod when informed regarding transfer. Family aware earlier of the transfer and in agreement. Addendum: 07/25/16 at 1529 by SINGH MULLEN RN Report given to Veronica GALLEGO for continuity of care.
--- NOTE | 2016-07-25 15:30 | NUR ---
TAYL[facility] RN NOTE RECEIVED PATINT FROM ICU ,ALERT ,AWAKE, ABLE TO FOLLOW COMMAND , WITH TRACH TO VCENT SETTING ORDERED , AMBU BAG AT HOB AT ALL TIME , BED IN LOWEST AND LOCKED POSITION , SD LIGHT WITHIN REACH , ROOM ORIENTATION DONE, PLACED ON G TUBE FEEDING ORDERED , KEEP HOB ELEVATED AT ALL TIME, WITH LT UPPER ARM MID LINE ON IVF ORDERED , WITH ISOFLEX BED WILL CONT TO MONITOR CLOSELY, ON TELE MONITOR SR ,
[2016-07-25] MEDS: CEFEPIME 2 GM in IV D5W 100 ML IV SCH (15:46)
[2016-07-25] MEDS: GLYTROL 1,000 ML BAG GT PRN (15:47)
--- NOTE | 2016-07-25 18:45 | NUR ---
TAYLOR RN NOTE ALL NEEDS ATTENDED, NOT IN ACUTE DISTRESS, CONT ON IVF ORDERED
--- NOTE | 2016-07-25 19:03 | NUR ---
TAYLOR RN NOTE PER DR FEI GUTIERREZ TO HAVE ICE CHIPS PRN ,ORDER CARRIED OUT
--- NOTE | 2016-07-25 19:30 | NUR ---
PHARMACY CALLED AND TOLD ME TO GIVE AMIKACIN EXACTLY AT 2200 REGARDLESS OF AMIKACIN LEVEL, AND DRAW PEAK LEVEL AT 2230. WILL CARRY OUT
--- NOTE | 2016-07-25 20:00 | NUR ---
RN [facility] - NOTES - RECEIVED PATENT ALERT, AWAKE, ABLE TO FOLLOW COMMAND , WITH TRACH TO VENT SETTING ORDERED , AMBU BAG AT HOB AT ALL TIME , BED IN LOWEST AND LOCKED POSITION , SD LIGHT WITHIN REACH , ROOM ORIENTATION DONE, PLACED ON G TUBE FEEDING ORDERED , KEEP HOB ELEVATED AT ALL TIME, WITH LT UPPER ARM MIDLINE ON IVF ORDERED , WITH ISOFLEX BED WILL CONT TO MONITOR CLOSELY, ON TELE MONITOR SR ,
[2016-07-25] MEDS: ATORVASTATIN 40 MG TABLET GT SCH (21:39)
[2016-07-25] MEDS: ENOXAPARIN SODIUM 30 MG/0.3 ML DISP.SYRIN SQ SCH (21:40)
[2016-07-25] MEDS: INSULIN DETEMIR 100 UNIT/ML CARTRIDGE SQ SCH (21:53)
[2016-07-25] MEDS: AMIKACIN 300 MG in IV D5W 100 ML IV SCH (21:55)
[2016-07-26] VITALS: BP 113/53
--- NOTE | 2016-07-26 | NUR ---
AMIKACIN LEVEL 13.3, AMIKACIN WAS ALREADY GIVEN AND PEAK LEVEL WAS ALREADY DRAW AND SENT TO LAB PER PHARMACY
[2016-07-26] MEDS: BLOOD SUGAR DIAGNOSTIC 1 EACH STRIP IN SCH ×5 (00:33→23:47)
[2016-07-26] MEDS: INSULIN REGULAR, HUMAN 100 UNIT/ML 3 ML VIAL SQ PRN ×5 (00:40→23:50)
[2016-07-26] MEDS: ALBUTEROL FS 2.5 MG/3 ML VIAL.NEB NEB SCH ×4 (02:12→20:10)
[2016-07-26] MEDS: ACETYLCYSTEINE 10% SOLN 400 MG/4 ML VIAL NEB SCH ×4 (02:12→20:10)
[2016-07-26] MEDS: IPRATROPIUM NEB FS 0.5 MG/2.5 ML AMPUL.NEB NEB SCH ×4 (02:12→20:10)
[2016-07-26] MEDS: IV NS 0.9% 1,000 ML IV PRN ×2 (03:25→14:29)
[2016-07-26 04:00] VITALS: BP 118/56
[2016-07-26] MEDS: methylPREDNISolone SOD SUCC 125 MG/2ML VIAL IV SCH (05:21)
[2016-07-26 06:37] LABS: HEMATOCRIT 27 % (33-45); HEMOGLOBIN 8.7 g/dL (11.5-14.8); LYMPHOCYTES # (AUTO) 0.8 /CMM (0.8-4.8); LYMPHOCYTES % (AUTO) 4.9 % (20.0-44.0); MEAN CORPUSCULAR HEMOGLOBIN 29 PG (26.0-33.0); MEAN CORPUSCULAR HGB CONC 32 g/dl (31.0-36.0); MEAN CORPUSCULAR VOLUME 90 fL (82-100); MONOCYTES # (AUTO) 0.7 /CMM (0.1-1.30); MONOCYTES % (AUTO) 4.3 % (2.0-12.0); NEUTROPHILS # (AUTO) 15.4 /CMM (1.8-8.9); NEUTROPHILS % (AUTO) 90.8 % (43.0-81.0); PLATELET COUNT (AUTO) 316 /CMM (150-450); RDW COEFFICIENT OF VARIATION 18.2 (11.5-15.0); RED BLOOD CELL COUNT(AUTO) 3.02 MIL/uL (4.0-5.2)
[2016-07-26 07:12] LABS: CALCIUM, SERUM 8.2 mg/dL (8.5-10.1); CREATININE 2.3 mg/dL (0.6-1.3); MAGNESIUM 1.7 mg/dL (1.8-2.4); PHOSPHORUS 2.3 mg/dL (2.5-4.9); POTASSIUM 3.6 mmol/L (3.5-5.1)
--- NOTE | 2016-07-26 07:30 | NUR ---
RN INITIAL NOTES PT IN BED, A/O X3-4, SAMI SPEAKING ONLY, HOB ELEVATED 35 DEGREES, [facility], SHILEY 6XLT, AC 22, TV 500, FIO2 45%, PEEP 0, TOLERATING WELL, PT USES PASSY DONNY VALVE, DENIES PAIN. ON TELE MONITOR WITH SR 67. PT HAS GT CDI, RUNNING GLYTROL @ 40 CC/HR, TOLERATING WELL, NO RESIDUAL. PT HAS SWARTZ CATH DRAINING WELL. REFER TO PTS CHART REGARDING SKIN, ALL WOUND ORDERS CARRIED OUT. IV ON LAC MIDLINE RUNNING NS @ 100 CC/HR, RIGHT WRIST 20G, SALINE FLUSHED, CDI, NO SIGNS OF INFECTION/INFILTRATION. CALL LIGHT WITHIN EASY REACH, SAFETY MEASURES MAINTAINED, WILL CONTINUE TO MONITOR AND FOLLOW MD ORDERS. PT IN OVERALL STABLE CONDITION.
[2016-07-26 08:00] VITALS: BP 108/52
[2016-07-26 08:30] LABS: BAND % (MANUAL) 5 % (0.0-5.0); LYMPHOCYTES % (MANUAL) 5 % (16-48); METAMYELOCYTES % 1 % (0-0); MONOCYTES % (MANUAL) 5 % (0-11.0); NEUTROPHILS % (MANUAL) 84 (42-76)
[2016-07-26] MEDS: VIT B CMPLX 3/FA/VIT C/BIOTIN 1 TAB TABLET GT SCH (08:53)
[2016-07-26] MEDS: PANTOPRAZOLE 40 MG/PACK PACK GT SCH (08:53)
[2016-07-26] MEDS: LACTOBACILLUS RHAMNOSUS GG 1 EACH CAP.SPRINK GT SCH (08:53)
[2016-07-26] MEDS: LINEZOLID 600 MG TABLET PO SCH ×2 (08:53→21:03)
[2016-07-26] MEDS: AMIODARONE HCL 200 MG TABLET GT SCH ×2 (08:54→21:04)
[2016-07-26] MEDS: SERTRALINE HCL 25 MG TABLET GT SCH (08:54)
[2016-07-26] MEDS: LINAGLIPTIN 5 MG TABLET GT SCH (08:54)
[2016-07-26] MEDS: HYDROGEL DRESSING 90 GM TUBE TP SCH (08:55)
[2016-07-26] MEDS: Z GUARD REMEDY 2 OZ OINT TP SCH ×2 (08:55→17:17)
[2016-07-26] MEDS: METOLAZONE 2.5 MG TABLET PO SCH (08:55)
[2016-07-26] MEDS: FERROUS SULFATE (325 MG) 325 MG/TAB TABLET GT SCH (08:55)
[2016-07-26] MEDS: CHOLESTYRAMINE/ASPARTAME 4 G/PKT PACKET GT SCH (08:55)
[2016-07-26 12:00] VITALS: BP 119/62
[2016-07-26] MEDS ORDERED: SECONDARY IV SET 1 EA INFUS.SET MC ONE ×2 (12:57→14:20)
[2016-07-26] MEDS ORDERED: BUMETANIDE INJ 8 MG in IV NS 0.9% 48 ML IV ONE (13:00)
[2016-07-26] MEDS ORDERED: Magnesium 1GM/D5W 100ML PREMIX 100 ML IV SCH (13:00)
[2016-07-26] MEDS ORDERED: METOLAZONE 2.5 MG TABLET PO ONE (13:30)
[2016-07-26] MEDS ORDERED: IV SET PRIMARY PUMP SET 1 EA INFUS.SET MC ONE (14:16)
[2016-07-26] MEDS: CEFEPIME 2 GM in IV D5W 100 ML IV SCH (14:28)
[2016-07-26] MEDS: GLYTROL 1,000 ML BAG GT PRN (14:59)
--- NOTE | 2016-07-26 15:11 | NUR ---
RN NOTES AWARE OF PTS URINE OSMOLALITY. NO NEW ORDERS. PT IN STABLE CONDITION, AT BEDSIDE. PT WAS SEEN BY EARLIER TODAY. Addendum: 07/26/16 at 1513 by KENTON SANCHEZ RN NOTES AMENDED DOCUMENTATION REGARDING URINE OSMOLALITY WAS NOT FOR THIS PT, PLEASE IGNORE.
--- NOTE | 2016-07-26 15:34 | NUR ---
RN NOTES PER MD, DO NOT REPLACE PHOS.
[2016-07-26 16:00] VITALS: BP 127/54
[2016-07-26] MEDS ORDERED: NEUTRA PHOS 1 POWD.PACKET NG ONE (18:30)
--- NOTE | 2016-07-26 19:07 | NUR ---
RN CLOSING NOTES ALL MD ORDERS CARRIED OUT, NO SUDDEN CHANGES DURING MY SHIFT, VSS, AFEBRILE, DENIES PAIN. TOLERATING MECH VENT WELL, NO DISTRESS. IV'S CDI, NO SIGNS OF INFECTION/INFILTRATION NOTED. SWARTZ CATH DRAINING CLEAR YELLOW URINE. GT CDI, TOLERATING GTF WELL, NO RESIDUAL. CALL LIGHT WITHIN EASY REACH, SAFETY MEASURES MAINTAINED, REPORT GIVEN FOR PORFIRIO.
[2016-07-26 20:00] VITALS: BP 120/56
--- NOTE | 2016-07-26 20:00 | NUR ---
Received patient A/O X3.VS stable.SR per tele monitoring.With trach to vent on AC mode.Vent settings well tolerated saturation 100%.Suctioned small amount thick white secretions and Oral care done.Patient denies pain or sob.GT feeding in progress.No residual noted.FC draining clear yellow urine.Bumex drip and IVF infusing to LAC site intact.Turned and repositioned.Safety measures observed with call light at BS within easy reach.
[2016-07-26] MEDS: ENOXAPARIN SODIUM 30 MG/0.3 ML DISP.SYRIN SQ SCH (21:05)
[2016-07-26] MEDS: ATORVASTATIN 40 MG TABLET GT SCH (21:17)
[2016-07-26] MEDS: INSULIN DETEMIR 100 UNIT/ML CARTRIDGE SQ SCH (21:21)
[2016-07-27] VITALS: BP 119/58
[2016-07-27] MEDS: IV NS 0.9% 1,000 ML IV PRN ×3 (01:06→21:29)
[2016-07-27] MEDS: ACETYLCYSTEINE 10% SOLN 400 MG/4 ML VIAL NEB SCH ×4 (02:16→19:47)
[2016-07-27] MEDS: IPRATROPIUM NEB FS 0.5 MG/2.5 ML AMPUL.NEB NEB SCH ×4 (02:16→19:46)
[2016-07-27] MEDS: ALBUTEROL FS 2.5 MG/3 ML VIAL.NEB NEB SCH ×4 (02:16→19:46)
[2016-07-27 04:00] VITALS: BP 118/55
[2016-07-27] MEDS: BLOOD SUGAR DIAGNOSTIC 1 EACH STRIP IN SCH ×3 (05:44→18:42)
[2016-07-27] MEDS: INSULIN REGULAR, HUMAN 100 UNIT/ML 3 ML VIAL SQ PRN ×3 (05:47→18:46)
[2016-07-27 06:41] LABS: CALCIUM, SERUM 8.3 mg/dL (8.5-10.1); CREATININE 2.4 mg/dL (0.6-1.3); MAGNESIUM 1.8 mg/dL (1.8-2.4); PHOSPHORUS 3.2 mg/dL (2.5-4.9); POTASSIUM 3.3 mmol/L (3.5-5.1)
--- NOTE | 2016-07-27 07:01 | NUR ---
Patient resting appears comfortable.Tolerating gt feeding and vent settings.AM care done. Turned and repositioned per protocol.No significant change noted during the shift.Adequate urine output.Blood sugar checked Q 6 hrs and coverage given per sliding scale.Needs met.
[2016-07-27 08:00] VITALS: BP 101/57
[2016-07-27] MEDS: SERTRALINE HCL 25 MG TABLET GT SCH (09:20)
[2016-07-27] MEDS: FERROUS SULFATE (325 MG) 325 MG/TAB TABLET GT SCH (09:20)
[2016-07-27] MEDS: VIT B CMPLX 3/FA/VIT C/BIOTIN 1 TAB TABLET GT SCH (09:20)
[2016-07-27] MEDS: LACTOBACILLUS RHAMNOSUS GG 1 EACH CAP.SPRINK GT SCH (09:20)
[2016-07-27] MEDS: LINEZOLID 600 MG TABLET PO SCH ×2 (09:21→21:27)
[2016-07-27] MEDS: METOLAZONE 2.5 MG TABLET PO SCH (09:21)
[2016-07-27] MEDS: LINAGLIPTIN 5 MG TABLET GT SCH (09:21)
[2016-07-27] MEDS: PANTOPRAZOLE 40 MG/PACK PACK GT SCH (09:22)
[2016-07-27] MEDS: AMIODARONE HCL 200 MG TABLET GT SCH ×2 (09:22→21:27)
[2016-07-27] MEDS: methylPREDNISolone SOD SUCC 125 MG/2ML VIAL IV SCH (09:24)
[2016-07-27] MEDS: CHOLESTYRAMINE/ASPARTAME 4 G/PKT PACKET GT SCH (09:24)
[2016-07-27] MEDS: Z GUARD REMEDY 2 OZ OINT TP SCH ×2 (09:25→18:42)
[2016-07-27] MEDS: HYDROGEL DRESSING 90 GM TUBE TP SCH (09:25)
[2016-07-27] MEDS ORDERED: POTASSIUM CHLORIDE 20 MEQ POWDER PACKET GT SCH (11:30)
[2016-07-27 12:00] VITALS: BP_SYST 112; BP_DIAS 40; BP_DIAS 48
[2016-07-27] MEDS ORDERED: SECONDARY IV SET 1 EA INFUS.SET MC ONE ×2 (14:57→21:22)
[2016-07-27] MEDS: GLYTROL 1,000 ML BAG GT PRN (15:03)
[2016-07-27] MEDS: CEFEPIME 2 GM in IV D5W 100 ML IV SCH (15:03)
[2016-07-27 16:00] VITALS: BP 109/33
--- NOTE | 2016-07-27 19:30 | NUR ---
PATIENT CENTERED CARE SPECIALIST INITIAL NOTES RECEIVED PATIENT WITH AT BEDSIDE. PATIENT VENT DEPENDENT, ABLE TO MOUTH WORDS, AND ANSWER YES OR NO QUESTIONS, A/OX3. DENIES SOB. DENIES PAIN OR DISCOMFORT. WITH VENT SETTINGS AC 22, VT 500, FIO2 45%, NO PEEP. TRACH C/D/I. ON TELE MONITOR SINUS RHYTHM. WITH F/C PATENT AND INTACT, DRAINING. TOLERATING GTF, NO RESIDUAL NOTED. GT PATENT, INTACT, IN PLACE. SKIN WARM AND DRY TO TOUCH. IVF RUNNING. HOB KEPT ELEVATED. SIDE RAILS UP AND LOCKED. BED KEPT AT LOWEST POSITION. CALL LIGHT KEPT WITHIN EASY REACH. WILL CONTINUE TO MONITOR.
[2016-07-27 20:00] VITALS: BP 106/58
[2016-07-27] MEDS: AMIKACIN 350 MG in IV D5W 100 ML IV SCH (21:26)
[2016-07-27] MEDS: CARVEDILOL 3.125 MG TABLET GT SCH (21:27)
[2016-07-27] MEDS: ATORVASTATIN 40 MG TABLET GT SCH (21:27)
[2016-07-27] MEDS: ENOXAPARIN SODIUM 30 MG/0.3 ML DISP.SYRIN SQ SCH (21:32)
[2016-07-27] MEDS: INSULIN DETEMIR 100 UNIT/ML CARTRIDGE SQ SCH (21:32)
[2016-07-28] VITALS: BP 107/52
[2016-07-28] MEDS: BLOOD SUGAR DIAGNOSTIC 1 EACH STRIP IN SCH ×4 (00:17→17:22)
[2016-07-28] MEDS: INSULIN REGULAR, HUMAN 100 UNIT/ML 3 ML VIAL SQ PRN ×4 (00:20→17:49)
[2016-07-28] MEDS: ACETYLCYSTEINE 10% SOLN 400 MG/4 ML VIAL NEB SCH ×4 (01:27→20:05)
[2016-07-28] MEDS: ALBUTEROL FS 2.5 MG/3 ML VIAL.NEB NEB SCH ×4 (01:27→20:05)
[2016-07-28] MEDS: IPRATROPIUM NEB FS 0.5 MG/2.5 ML AMPUL.NEB NEB SCH ×4 (01:28→20:05)
[2016-07-28 04:00] VITALS: BP 100/53
[2016-07-28 07:13] LABS: CREATININE 2.3 mg/dL (0.6-1.3); POTASSIUM 3.2 mmol/L (3.5-5.1)
--- NOTE | 2016-07-28 07:38 | NUR ---
CUTTER PLASTICS ROLLS CLOSING NOTES NO SIGNIFICANT CHANGES OVERNIGHT. ALL NEEDS ANTICIPATED AND MET. TOLERATED VENT SETTINGS. NO RESPIRATORY DISTRESS NOTED. SKIN WARM AND DRY TO TOUCH. TOLERATING GTF. SIDE RAILS UP AND LOCKED. BED KEPT AT LOWEST POSITION. HOB KEPT ELEVATED. KEPT CLEAN AND DRY. TURNED AND REPOSITIONED Q2 AND PRN. CALL LIGHT KEPT WITHIN EASY REACH. CONTINUITY OF CARE ENDORSED TO AM NURSE.
--- NOTE | 2016-07-28 07:51 | NUR ---
OIL BURNER REPAIRER MORNING NOTES RECEIVED PATIENT RESTING IN BED VENT DEPENDENT, ABLE TO MOUTH WORD, AND COMMUNICATE NEEDS. PATIENT APPEARS CALM AND COMFORTABLE, NO SYMPTOMS OF DISTRESS OR DISCOMFORT NOTED. DENIES PAIN AT THIS TIME. NO S/S OF RESPIRATORY DISTRESS NOTED, VENT SETTINGS AC 22, VT 500, FIO2 45%, NO PEEP. TRACH C/D/I. ON TELE MONITOR SINUS RHYTHM. F/C PATENT AND INTACT, DRAINING YELLOW CLEAR URINE. GTF, GLYTROL AT 40CC/HR, NO RESIDUAL NOTED. IVF RUNNING WELL, NO S/S OF INFILTRATION NOTED. HOB KEPT ELEVATED. SAFETY MEASURES RENDERED, SIDE RAILS UP AND LOCKED. BED KEPT AT LOWEST POSITION. CALL LIGHT KEPT WITHIN EASY REACH. WILL CONTINUE TO MONITOR.
[2016-07-28 08:00] VITALS: BP 105/50
[2016-07-28] MEDS: PANTOPRAZOLE 40 MG/PACK PACK GT SCH (08:20)
[2016-07-28] MEDS: methylPREDNISolone SOD SUCC 125 MG/2ML VIAL IV SCH (08:20)
[2016-07-28] MEDS: LINAGLIPTIN 5 MG TABLET GT SCH (08:21)
[2016-07-28] MEDS: VIT B CMPLX 3/FA/VIT C/BIOTIN 1 TAB TABLET GT SCH (08:21)
[2016-07-28] MEDS: SERTRALINE HCL 25 MG TABLET GT SCH (08:21)
[2016-07-28] MEDS: METOLAZONE 2.5 MG TABLET PO SCH (08:22)
[2016-07-28] MEDS: LACTOBACILLUS RHAMNOSUS GG 1 EACH CAP.SPRINK GT SCH (08:22)
[2016-07-28] MEDS: LINEZOLID 600 MG TABLET PO SCH ×2 (08:22→21:50)
[2016-07-28] MEDS: FERROUS SULFATE (325 MG) 325 MG/TAB TABLET GT SCH (08:22)
[2016-07-28] MEDS: AMIODARONE HCL 200 MG TABLET GT SCH ×2 (08:24→21:50)
[2016-07-28] MEDS: Z GUARD REMEDY 2 OZ OINT TP SCH ×2 (08:24→17:00)
[2016-07-28] MEDS: CARVEDILOL 3.125 MG TABLET GT SCH ×2 (08:24→21:49)
[2016-07-28] MEDS: HYDROGEL DRESSING 90 GM TUBE TP SCH (08:24)
[2016-07-28] MEDS: CHOLESTYRAMINE/ASPARTAME 4 G/PKT PACKET GT SCH (08:26)
[2016-07-28] MEDS: POTASSIUM CL. PREMIX PERIPHER. 50 ML IV SCH ×2 (11:12→12:21)
--- NOTE | 2016-07-28 12:46 | NUR ---
TELE/RN NOTES SIMV TRIAL. ABGS DONE AT BEDSIDE. DISCUSSED POC WITH POURER PELEG TILL FURTHER ORDER CONTINUE CALL CURRENT ORDERS.
[2016-07-28 13:52] LABS: ABG BASE EXCESS -10.5 mmol/L; ABG OXYGEN SATURATION 90.6 % (92.0-98.5); ABG PCO2 48.8 mmHg (35.0-45.0); ABG PH 7.177 (7.350-7.450); ABG PO2 71.1 mmHg (75.0-100.0); AaDO2 194.2 mmHg; COHb 0.8 % (0.5-1.5); SITE, ABG Left Radial; VENT MODE, BG SIMV 4 500 PSV 12 45% +5
[2016-07-28 16:00] VITALS: BP_SYST 109; BP_SYST 131; BP_DIAS 49; BP_DIAS 57
[2016-07-28] MEDS: CEFEPIME 2 GM in IV D5W 100 ML IV SCH (16:09)
[2016-07-28] MEDS ORDERED: IV NS 0.9% 250 ML IV ONE (16:11)
[2016-07-28] MEDS: BUMETANIDE (1 MG) 1 MG TABLET PO SCH (16:14)
[2016-07-28] MEDS: GLYTROL 1,000 ML BAG GT PRN (17:49)
--- NOTE | 2016-07-28 18:24 | NUR ---
TELE/RN NOTES PATIENT RESTING IN BED, NO S/S OF DISTRESS/DISCOMFORT NOTED. PATIENT APPEARS STABLE WITH NO SIGNIFICANT CHANGES. ALL DUE MEDICATIONS GIVEN, ALL NEEDS MET AND ATTENDED, K+ REPLACED, ALL IV ANTIBIOTICS GIVEN. SKIN/WOUND CARE DONE, KEPT CLEAN AND DRY, SUCTIONED NEEDED. RESPIRATORY TREATMENT RECEIVED PER RT. WILL ENDORSE CARE TO RN TELEMETRY FOR PORFIRIO.
[2016-07-28 20:00] VITALS: BP 113/59
--- NOTE | 2016-07-28 20:20 | NUR ---
RN NOTES RECEIVED PT AWAKE APPEARS COMFORTABLE HOB ELEVATED, ON GT FEEDING WITH ASPIRATION PRECAUTION,WELL REPOSITIONED DENIES ANY PAIN, WILL CONT TO MONITOR.
[2016-07-28] MEDS: ATORVASTATIN 40 MG TABLET GT SCH (21:50)
[2016-07-28] MEDS: ENOXAPARIN SODIUM 30 MG/0.3 ML DISP.SYRIN SQ SCH (21:55)
[2016-07-28] MEDS: INSULIN DETEMIR 100 UNIT/ML CARTRIDGE SQ SCH (22:06)
[2016-07-29] VITALS: BP_SYST 104; BP_SYST 110; BP_DIAS 44; BP_DIAS 50
[2016-07-29] MEDS: BLOOD SUGAR DIAGNOSTIC 1 EACH STRIP IN SCH ×5 (00:07→23:18)
[2016-07-29] MEDS: INSULIN REGULAR, HUMAN 100 UNIT/ML 3 ML VIAL SQ PRN ×5 (00:13→23:18)
[2016-07-29] MEDS: ACETYLCYSTEINE 10% SOLN 400 MG/4 ML VIAL NEB SCH ×4 (01:03→20:17)
[2016-07-29] MEDS: ALBUTEROL FS 2.5 MG/3 ML VIAL.NEB NEB SCH ×4 (01:04→20:17)
[2016-07-29] MEDS: IPRATROPIUM NEB FS 0.5 MG/2.5 ML AMPUL.NEB NEB SCH ×4 (01:04→20:16)
[2016-07-29 04:00] VITALS: BP 110/44
[2016-07-29 06:36] LABS: BASOPHILS % (AUTO) 0.1 % (0.0-2.0); HEMATOCRIT 27 % (33-45); HEMOGLOBIN 8.7 g/dL (11.5-14.8); LYMPHOCYTES # (AUTO) 0.7 /CMM (0.8-4.8); LYMPHOCYTES % (AUTO) 4.3 % (20.0-44.0); MEAN CORPUSCULAR HEMOGLOBIN 29 PG (26.0-33.0); MEAN CORPUSCULAR HGB CONC 33 g/dl (31.0-36.0); MEAN CORPUSCULAR VOLUME 90 fL (82-100); MONOCYTES # (AUTO) 0.6 /CMM (0.1-1.30); MONOCYTES % (AUTO) 3.5 % (2.0-12.0); NEUTROPHILS # (AUTO) 15.7 /CMM (1.8-8.9); NEUTROPHILS % (AUTO) 92.1 % (43.0-81.0); PLATELET COUNT (AUTO) 231 /CMM (150-450); RDW COEFFICIENT OF VARIATION 18.6 (11.5-15.0); RED BLOOD CELL COUNT(AUTO) 2.96 MIL/uL (4.0-5.2); WHITE BLOOD COUNT (AUTO) 17.1 K/uL (4.3-11.0)
[2016-07-29 07:16] LABS: ALBUMIN 2.1 g/dL (3.4-5.0); BILIRUBIN,TOTAL 0.3 mg/dL (0.2-1.0); CALCIUM, SERUM 8.2 mg/dL (8.5-10.1); CREATININE 2.4 mg/dL (0.6-1.3); MAGNESIUM 1.5 mg/dL (1.8-2.4); PHOSPHORUS 3.5 mg/dL (2.5-4.9); POTASSIUM 3.4 mmol/L (3.5-5.1); TOTAL PROTEIN, SERUM 5.3 g/dL (6.4-8.2)
--- NOTE | 2016-07-29 07:53 | NUR ---
ACTIVITY ASSISTANT CLOSING NOTES NO SIGNIFICANT CHANGES OVERNIGHT. NO RESPIRATORY DISTRESS NOTED. TOLERATED GTF. F/C PATENT AND INTACT. DVT PUMPS ON. KEPT CLEAN AND DRY. TURNED AND REPOSITIONED Q2 AND PRN. HOB KEPT ELEVATED. SIDE RAILS UP AND LOCKED. BED KEPT AT LOWEST POSITION. CALL LIGHT KEPT WITHIN EASY REACH. CONTINUITY OF CARE ENDORSED TO AM NURSE.
[2016-07-29 08:00] VITALS: BP 112/54
--- NOTE | 2016-07-29 08:00 | NUR ---
initial note resting in bed. responds to name. mouths words. non-verbal. follow simple commands. breathing even and unlabored with AC vent. trach patent. suctioned, no secretion at this time. o2 sat 100%. f/c patent with clear yellow urine. RW iv and midline patent, dressing cdi. denies pain. gt feeding on, patent, no residuals. discussed plan of care. offloading bony prominences. call light in reach.
[2016-07-29] MEDS: LACTOBACILLUS RHAMNOSUS GG 1 EACH CAP.SPRINK GT SCH (08:14)
[2016-07-29] MEDS: CHOLESTYRAMINE/ASPARTAME 4 G/PKT PACKET GT SCH (08:14)
[2016-07-29] MEDS: BUMETANIDE (1 MG) 1 MG TABLET PO SCH (08:15)
[2016-07-29] MEDS: LINAGLIPTIN 5 MG TABLET GT SCH (08:15)
[2016-07-29] MEDS: PANTOPRAZOLE 40 MG/PACK PACK GT SCH (08:15)
[2016-07-29] MEDS: methylPREDNISolone SOD SUCC 125 MG/2ML VIAL IV SCH (08:15)
[2016-07-29] MEDS: FERROUS SULFATE (325 MG) 325 MG/TAB TABLET GT SCH (08:15)
[2016-07-29] MEDS: LINEZOLID 600 MG TABLET PO SCH ×2 (08:15→20:37)
[2016-07-29] MEDS: VIT B CMPLX 3/FA/VIT C/BIOTIN 1 TAB TABLET GT SCH (08:15)
[2016-07-29] MEDS: SERTRALINE HCL 25 MG TABLET GT SCH (08:15)
[2016-07-29] MEDS: AMIODARONE HCL 200 MG TABLET GT SCH ×2 (08:16→20:38)
[2016-07-29] MEDS: CARVEDILOL 3.125 MG TABLET GT SCH ×2 (08:16→20:38)
[2016-07-29] MEDS: Z GUARD REMEDY 2 OZ OINT TP SCH ×2 (08:17→16:19)
[2016-07-29] MEDS: HYDROGEL DRESSING 90 GM TUBE TP SCH (08:17)
[2016-07-29] MEDS ORDERED: POTASSIUM CHLORIDE 20 MEQ POWDER PACKET GT ONE (09:00)
[2016-07-29] MEDS ORDERED: SECONDARY IV SET 1 EA INFUS.SET MC ONE (09:17)
[2016-07-29] MEDS: Magnesium 1GM/D5W 100ML PREMIX 100 ML IV SCH ×5 (09:22→16:19)
--- NOTE | 2016-07-29 09:58 | NUR ---
rn note dr. cuello made aware of coreg and amiodarone held for bradycardia. said ok.
[2016-07-29 12:00] VITALS: BP 109/87
[2016-07-29] MEDS ORDERED: METOLAZONE 2.5 MG TABLET PO ONE (14:00)
[2016-07-29] MEDS ORDERED: Magnesium 1GM/D5W 100ML PREMIX 1 G in PREMIX 1 EA IV SCH (14:00)
[2016-07-29] MEDS ORDERED: POTASSIUM CHLORIDE 20 MEQ TAB.PRT.SR PO ONE (14:00)
[2016-07-29] MEDS: CEFEPIME 2 GM in IV D5W 100 ML IV SCH (14:19)
[2016-07-29 16:00] VITALS: BP 118/52
--- NOTE | 2016-07-29 19:25 | NUR ---
closing note left patient in stable condition. LOC and VS stable, afebrile this shift. denies pain. R hand iv and YUE midline patent, non-infiltrated. GT patent, non-leaking, no residuals with prescribed feeding. no aspiration noted. suction prn, minimal secretions. patient tolerating AC vent setting, no labored breathing. dr. Nakia Rhoades made aware this shift of abdominal and hip edema. photo place in chart today, also MD made aware that family wishes patient to be discharged pe[facility]. arranged for family to speak to case supervisor Elvia. dr. Rhoades says patient not stable for d/c at this time. Dr. Rhoades also confirmed Mg (5g iv) and K(80meq via GT) replacement amount- administered. no adverse reaction. provided patient with frequent cleaning/ ADL and repositioning this shift. no new skin break down. provided education to patient and family this shift regarding attempt for ventilator weaning and critical ABG results, elevated WBC and need for NPO status with current ventilator setting. Family does not verbalize understanding, appearing to be in denial. provided therapeutic communication to patient and family. left patient in stable condition at this time. call light in reach. at bed side.
[2016-07-29 20:00] VITALS: BP 110/42
[2016-07-29] MEDS: ENOXAPARIN SODIUM 30 MG/0.3 ML DISP.SYRIN SQ SCH (20:37)
[2016-07-29] MEDS: ATORVASTATIN 40 MG TABLET GT SCH (21:28)
[2016-07-29] MEDS: GLYTROL 1,000 ML BAG GT PRN (21:28)
[2016-07-29] MEDS: INSULIN DETEMIR 100 UNIT/ML CARTRIDGE SQ SCH (21:29)
[2016-07-29] MEDS: AMIKACIN 350 MG in IV D5W 100 ML IV SCH (21:31)
[2016-07-30] VITALS (8 sets, daily range): BP systolic 97–120; BP diastolic 38–52
--- NOTE | 2016-07-30 00:03 | NUR ---
RN:TD: PT AMIKACIN LEVEL ELEVATED BUT ACCORDING TO DAYSHIFT NURSE AND PHARMACISTS NOTE, OK TO GIVE DOSE REGARDLESS OF DOSE THEY WILL ADJUST FUTURE DOSING.
[2016-07-30] MEDS: IPRATROPIUM NEB FS 0.5 MG/2.5 ML AMPUL.NEB NEB SCH ×4 (02:08→19:43)
[2016-07-30] MEDS: ACETYLCYSTEINE 10% SOLN 400 MG/4 ML VIAL NEB SCH ×4 (02:08→19:43)
[2016-07-30] MEDS: ALBUTEROL FS 2.5 MG/3 ML VIAL.NEB NEB SCH ×4 (02:08→19:43)
[2016-07-30] MEDS: BLOOD SUGAR DIAGNOSTIC 1 EACH STRIP IN SCH ×4 (05:43→23:00)
[2016-07-30] MEDS: INSULIN REGULAR, HUMAN 100 UNIT/ML 3 ML VIAL SQ PRN ×4 (05:43→23:01)
[2016-07-30 06:51] LABS: BASOPHILS % (AUTO) 0.1 % (0.0-2.0); EOSINOPHILS % (AUTO) 0.1 % (0.0-6.0); HEMATOCRIT 27 % (33-45); HEMOGLOBIN 8.5 g/dL (11.5-14.8); LYMPHOCYTES # (AUTO) 1.3 /CMM (0.8-4.8); LYMPHOCYTES % (AUTO) 8.4 % (20.0-44.0); MEAN CORPUSCULAR HEMOGLOBIN 28 PG (26.0-33.0); MEAN CORPUSCULAR HGB CONC 32 g/dl (31.0-36.0); MEAN CORPUSCULAR VOLUME 90 fL (82-100); MONOCYTES # (AUTO) 0.7 /CMM (0.1-1.30); MONOCYTES % (AUTO) 4.3 % (2.0-12.0); NEUTROPHILS % (AUTO) 87.1 % (43.0-81.0); PLATELET COUNT (AUTO) 209 /CMM (150-450); RDW COEFFICIENT OF VARIATION 19.4 (11.5-15.0); RED BLOOD CELL COUNT(AUTO) 3.01 MIL/uL (4.0-5.2); WHITE BLOOD COUNT (AUTO) 14.9 K/uL (4.3-11.0)
--- NOTE | 2016-07-30 07:15 | NUR ---
RN INITIAL NOTE PT RECEIVED IN BED, SLEEPING. EASILY AROUSABLE. ABLE TO MAKE NEEDS KNOWN. NO S/S OF PAIN OR DISCOMFORT. PT IS SINUS RHYTHM ON TELE MONITOR. PT HAS LENORE FOFANA #6, AC-22, TV-500, FI02 45. RESPIRATIONS ARE EVEN AND UNLABORED. SATING WELL. NO S/S OF RESPIRATORY DISTRESS OR SOB. GTUBE FLUSHED, PATENT. PLACEMENT CONFIRMED. RUNNING GLYTROL @40ML/HR. TOLERATING SETTINGS WELL. SWARTZ CATH DRAINING TO GRAVITY. SKIN IS WARM AND DRY TO TOUCH. LEFT WRIST AND LEFT UPPER MIDLINE IV SITE FLUSHED, PATENT. NORMAL SALINE RUNNING AT 5ML/HR. SAFETY PRECAUTIONS IMPLEMENTED. BED IN LOCKED, LOW POSITION. TWO SIDE RAILS UP. CALL LIGHT WITHIN REACH. WILL CONTINUE TO MONITOR.
[2016-07-30 07:23] LABS: CALCIUM, SERUM 8.8 mg/dL (8.5-10.1); CREATININE 2.5 mg/dL (0.6-1.3); MAGNESIUM 2.5 mg/dL (1.8-2.4); POTASSIUM 3.5 mmol/L (3.5-5.1)
[2016-07-30] MEDS: methylPREDNISolone SOD SUCC 125 MG/2ML VIAL IV SCH (08:45)
[2016-07-30] MEDS: CHOLESTYRAMINE/ASPARTAME 4 G/PKT PACKET GT SCH (08:45)
[2016-07-30] MEDS: LINAGLIPTIN 5 MG TABLET GT SCH (08:46)
[2016-07-30] MEDS: LACTOBACILLUS RHAMNOSUS GG 1 EACH CAP.SPRINK GT SCH (08:46)
[2016-07-30] MEDS: VIT B CMPLX 3/FA/VIT C/BIOTIN 1 TAB TABLET GT SCH (08:46)
[2016-07-30] MEDS: PANTOPRAZOLE 40 MG/PACK PACK GT SCH (08:46)
[2016-07-30] MEDS: FERROUS SULFATE (325 MG) 325 MG/TAB TABLET GT SCH (08:46)
[2016-07-30] MEDS: LINEZOLID 600 MG TABLET PO SCH ×2 (08:46→21:13)
[2016-07-30] MEDS: SERTRALINE HCL 25 MG TABLET GT SCH (08:46)
[2016-07-30] MEDS: AMIODARONE HCL 200 MG TABLET GT SCH ×2 (08:47→21:14)
[2016-07-30] MEDS: CARVEDILOL 3.125 MG TABLET GT SCH ×2 (08:47→21:14)
[2016-07-30] MEDS: BUMETANIDE (1 MG) 1 MG TABLET PO SCH (08:54)
[2016-07-30] MEDS: IV NS 0.9% 250 ML IV PRN (08:58)
[2016-07-30] MEDS: Z GUARD REMEDY 2 OZ OINT TP SCH ×2 (09:11→17:31)
[2016-07-30] MEDS: HYDROGEL DRESSING 90 GM TUBE TP SCH (09:11)
[2016-07-30] MEDS: METOLAZONE 2.5 MG TABLET PO SCH (12:30)
[2016-07-30] MEDS ORDERED: BUMETANIDE INJ 3 MG in IV NS 0.9% 48 ML IV ONE (13:00)
[2016-07-30] MEDS: CEFEPIME 2 GM in IV D5W 100 ML IV SCH (15:09)
--- NOTE | 2016-07-30 19:08 | NUR ---
RN CLOSING NOTE PT IN BED RESTING COMFORTABLY. ALL MD ORDERS CARRIED OUT. SAFETY PRECAUTIONS IN PLACE AT ALL TIMES. ISOLATION PRECAUTIONS OBSERVED AT ALL TIMES. WILL GIVE REPORT TO PM RN FOR PORFIRIO.
--- NOTE | 2016-07-30 19:35 | NUR ---
RN OPENING NOTES: RECEIVED PT ON BED NO TIN APPARENT DISTRESS, WITH ON THE BEDSIDE. PT IS ALERT AND ORIENTED IS ABLE TO MOUTH WORDS, LAO SPEAKER. TRACH TO [facility] WITH SETTINGS ORDERED, TOLERATED WELL. SR ON MONITOR WITH BBB HR AT 70 BPM. GT INTACT, FEEDING ONGOING NOTED WITH MINIMAL RESIDUALS AT THIS TIME. FC INTACT, DRAINING TO A CLOSED SYSTEM. WITH IV ACCESS ON YUE MIDLINE AND R WRIST G20. MONITORED ACCORDINGLY. SAFETY MEASURES ENSURED AT ALL TIMES.
[2016-07-30] MEDS: ATORVASTATIN 40 MG TABLET GT SCH (21:14)
[2016-07-30] MEDS: HEPARIN SODIUM, PORCINE 5000 UNITS/1 ML VIAL SQ SCH (21:15)
[2016-07-30] MEDS: INSULIN DETEMIR 100 UNIT/ML CARTRIDGE SQ SCH (22:59)
[2016-07-31] VITALS: BP 101/48
[2016-07-31] MEDS: ALBUTEROL FS 2.5 MG/3 ML VIAL.NEB NEB SCH ×4 (01:05→20:12)
[2016-07-31] MEDS: ACETYLCYSTEINE 10% SOLN 400 MG/4 ML VIAL NEB SCH ×4 (01:05→20:12)
[2016-07-31] MEDS: IPRATROPIUM NEB FS 0.5 MG/2.5 ML AMPUL.NEB NEB SCH ×4 (01:05→20:12)
[2016-07-31] MEDS: GLYTROL 1,000 ML BAG GT PRN (03:54)
[2016-07-31 04:00] VITALS: BP 93/48
[2016-07-31] MEDS ORDERED: IV SET PRIMARY PUMP SET 1 EA INFUS.SET MC ONE ×2 (04:11→16:19)
[2016-07-31] MEDS: BLOOD SUGAR DIAGNOSTIC 1 EACH STRIP IN SCH ×4 (05:07→23:08)
[2016-07-31] MEDS: INSULIN REGULAR, HUMAN 100 UNIT/ML 3 ML VIAL SQ PRN ×4 (05:12→23:12)
[2016-07-31 07:14] LABS: CALCIUM, SERUM 8.5 mg/dL (8.5-10.1); CREATININE 2.5 mg/dL (0.6-1.3); POTASSIUM 3.2 mmol/L (3.5-5.1)
--- NOTE | 2016-07-31 07:24 | NUR ---
RN NOTES: PATIENT REMAINED IN BED NOT IN APPARENT DISTRESS. REMAINED TRACH TO MECH VENT. TOLERATED WELL. SKIN CARE RENDERED.REMAINED SR WITH BBB. AM LABS DRAWN. CONTINUOUSLY MONITORED ENDORSED TO AM SHIFT RN.
[2016-07-31 08:00] VITALS: BP 106/54
[2016-07-31 10:00] LABS: ABG OXYGEN SATURATION 96.6 % (92.0-98.5); ABG PCO2 26.3 mmHg (35.0-45.0); ABG PH 7.434 (7.350-7.450); ABG PO2 100.2 mmHg (75.0-100.0); AaDO2 190.7 mmHg; COHb 0.1 % (0.5-1.5); MetHb 0.8 % (0.0-1.5); O2Hb 95.7 % (94.0-97.0); SITE, ABG Left Radial; VT, ABG 500 mL
[2016-07-31] MEDS: LACTOBACILLUS RHAMNOSUS GG 1 EACH CAP.SPRINK GT SCH (10:21)
[2016-07-31] MEDS: CARVEDILOL 3.125 MG TABLET GT SCH ×2 (10:21→21:24)
[2016-07-31] MEDS: VIT B CMPLX 3/FA/VIT C/BIOTIN 1 TAB TABLET GT SCH (10:21)
[2016-07-31] MEDS: AMIODARONE HCL 200 MG TABLET GT SCH ×2 (10:21→21:23)
[2016-07-31] MEDS: SERTRALINE HCL 25 MG TABLET GT SCH (10:21)
[2016-07-31] MEDS: LINAGLIPTIN 5 MG TABLET GT SCH (10:22)
[2016-07-31] MEDS: PANTOPRAZOLE 40 MG/PACK PACK GT SCH (10:22)
[2016-07-31] MEDS: LINEZOLID 600 MG TABLET PO SCH (10:22)
[2016-07-31] MEDS: BUMETANIDE (1 MG) 1 MG TABLET PO SCH (10:23)
[2016-07-31] MEDS: methylPREDNISolone SOD SUCC 125 MG/2ML VIAL IV SCH (10:24)
[2016-07-31] MEDS: METOLAZONE 2.5 MG TABLET PO SCH (10:25)
[2016-07-31] MEDS: HEPARIN SODIUM, PORCINE 5000 UNITS/1 ML VIAL SQ SCH ×2 (10:26→21:22)
[2016-07-31] MEDS: CHOLESTYRAMINE/ASPARTAME 4 G/PKT PACKET GT SCH (10:28)
[2016-07-31] MEDS: FERROUS SULFATE (325 MG) 325 MG/TAB TABLET GT SCH (10:28)
[2016-07-31] MEDS: Z GUARD REMEDY 2 OZ OINT TP SCH ×2 (10:30→16:30)
[2016-07-31] MEDS: HYDROGEL DRESSING 90 GM TUBE TP SCH (10:30)
[2016-07-31] MEDS: POTASSIUM CL. PREMIX PERIPHER. 50 ML IV SCH ×3 (11:48→14:57)
[2016-07-31] MEDS: BUMETANIDE INJ 0.25 MG/ML VIAL IV SCH ×2 (11:58→16:30)
[2016-07-31 12:00] VITALS: BP 107/45
[2016-07-31] MEDS: ASPIRIN 81 MG TAB.CHEW PO SCH (13:27)
[2016-07-31] MEDS ORDERED: BUMETANIDE INJ 4 MG in IV NS 0.9% 24 ML IV ONE (14:00)
[2016-07-31 16:00] VITALS: BP_SYST 106; BP_DIAS 46; BP_DIAS 56
[2016-07-31] MEDS ORDERED: SECONDARY IV SET 1 EA INFUS.SET MC ONE (16:22)
[2016-07-31] MEDS: CEFEPIME 2 GM in IV D5W 100 ML IV SCH (16:29)
--- NOTE | 2016-07-31 16:30 | NUR ---
RN NOTE SPOKE WITH DR OZUNA ABOUT BUMEX, HE STATED TO ADMINISTER IV BUMEX DRIP 30 ML (3 MG) INSTEAD OF 40 ML (4 MG) BECAUSE PT RECEIVED 1200 DOSE OF 1 MG IV PUSH, AND HOLD 1700 SCHEDULED BUMEX 1 MG IV PUSH. WILL CARRY OUT AND ENDORSE TO ENTERPRISE ACCOUNT EXECUTIVE NURSE.
--- NOTE | 2016-07-31 17:46 | NUR ---
RT END OF THE SHIFT REPORT: PT. 70 Y OLD FEMALE REMAIN TRACH'D SHILEY XLT # 6 ON VENT WITH NOTED SETTINGS. ALARMS ARE SET AND FUNCTIONAL. EQUAL CHEST RISE NOTED AND NO RESPIRATORY DISTRESS NOTED T/O SHIFT. TX'S GIVEN INLINE BECKI/ NO ADVERSE REACTION NOTED. VENT CHANGES DONE POST ABG PER DR. PATTERSON ORDER AT THE BEDSIDE. PT. BECKI. WELL VENT PLUGGED INTO RED OUTLET AND HME CHANGED HOSPITAL TECHNICIAN DONE AND PT. REMAIN STABLE. B/S RALES BILATERALLY SUX'D FOR MINIMAL AMT PHAM SECRETIONS. AMBU BAG AT THE BEDSIDE. CONTINUE FOR MONITOR AND REPORT WILL PASS BE TO [facility]. Addendum: 07/31/16 at 1748 by JAY MACARIO RT Amended: Links added.
[2016-07-31] MEDS ORDERED: GLYTROL 1,000 ML BAG GT PRN (18:44)
[2016-07-31 20:00] VITALS: BP 104/43
--- NOTE | 2016-07-31 20:00 | NUR ---
RN NOTES RECEIVED PX AWAKE, ALERT, FOLLOWS COMMAND; WITH TRACH TO VENT, DRESSING CLEAN DRY INTACT; WITH G TUBE TO TF, TF TOLERATED WELL; LEFT UA MIDLINE, FLUSHED,PATENT,INTACT; WITH SWARTZ CATH TAPED TO THIGH CONNECTED TO BAG BY GRAVITY; BILAT DVT PUMPS ON; HEELS OFFLOADEDE; PX DENIED PAIN, SOB, N/V; SR ON MONITOR; REPOSITIONED; SUCTIONED ORALLY AND TRACHEALLY; DISCUSSED PLAN OF CARE; HOB AT 30 ANGLE; CALL LIGHT WITHIN REACH.
--- NOTE | 2016-07-31 20:12 | NUR ---
[facility] WITH NOTED SETTINGS. SUCTIONED SMALL AMOUNT OF YELLOWISH THICK SECRETIONS. WITH EQUAL BILATERAL B.S VENT ALARM CHECKED AND WORKING. VENT PLUGGED INTO RED OUTLET. AMBU BAG AT BEDSIDE. NO RESPIRATORY DISTRESS AT THIS TIME. WILL CONTINUE TO MONITOR.
[2016-07-31] MEDS: ATORVASTATIN 40 MG TABLET GT SCH (21:23)
[2016-07-31] MEDS: INSULIN DETEMIR 100 UNIT/ML CARTRIDGE SQ SCH (23:08)
[2016-07-31] MEDS: IV NS 0.9% 250 ML IV PRN (23:23)
[2016-08-01] VITALS: BP 106/41
--- NOTE | 2016-08-01 00:21 | NUR ---
RN NOTES HAD 1 BM; CLEANED PX AND CHANGED GOWN AND BED LINENS, PERICARE RENDERED; NO NEW SKIN BREAKDOWN, STILL WITH REDNESS ON PERIAREA AND SACRAL AREA, APPLIED Z GUARD; CHANGED DRESSING ON LEFT UA MIDLINE, G TUBE AND TRACH; SWARTZ CARE ALSO RENDERED, ALL PROCEDURES TOLERATED; TF TOLERATED; REPOSITIONED AND SUCTIONED TRACHEALLY.; DENIED PAIN, SOB, N/V.
[2016-08-01] MEDS: ALBUTEROL FS 2.5 MG/3 ML VIAL.NEB NEB SCH ×3 (00:58→14:04)
[2016-08-01] MEDS: IPRATROPIUM NEB FS 0.5 MG/2.5 ML AMPUL.NEB NEB SCH ×3 (00:58→14:04)
[2016-08-01] MEDS: ACETYLCYSTEINE 10% SOLN 400 MG/4 ML VIAL NEB SCH ×3 (00:58→14:04)
[2016-08-01 04:00] VITALS: BP 106/47
--- NOTE | 2016-08-01 04:04 | NUR ---
RN NOTES CONDITION AND NEURO STATUS UNCHANGED; DENIED PAIN, SOB, N/V; TF TOLERATED; REPOSITIONED.
[2016-08-01] MEDS: BLOOD SUGAR DIAGNOSTIC 1 EACH STRIP IN SCH ×2 (05:34→13:24)
[2016-08-01] MEDS: INSULIN REGULAR, HUMAN 100 UNIT/ML 3 ML VIAL SQ PRN ×2 (05:35→13:26)
--- NOTE | 2016-08-01 06:19 | NUR ---
RN NOTES NO OVERNIGHT EVENTS; REMAINED STABLE; DENIED PAIN, SOB, N/V; REPOSITIONED, DIAPER CLEAN AND DRY, NO MORE BM, NO NEW SKIN BREAKDOWN; IV ACCESS REMAINED INTACT AND PATENT; TF TOLERATED WELL; WILL ENDORSE TO NEXT RN.
[2016-08-01 06:29] LABS: BASOPHILS % (AUTO) 0.2 % (0.0-2.0); HEMATOCRIT 27 % (33-45); HEMOGLOBIN 8.7 g/dL (11.5-14.8); LYMPHOCYTES % (AUTO) 9.3 % (20.0-44.0); MEAN CORPUSCULAR HEMOGLOBIN 29 PG (26.0-33.0); MEAN CORPUSCULAR HGB CONC 33 g/dl (31.0-36.0); MEAN CORPUSCULAR VOLUME 90 fL (82-100); MONOCYTES # (AUTO) 0.5 /CMM (0.1-1.30); MONOCYTES % (AUTO) 4.5 % (2.0-12.0); NEUTROPHILS # (AUTO) 9.2 /CMM (1.8-8.9); PLATELET COUNT (AUTO) 146 /CMM (150-450); RED BLOOD CELL COUNT(AUTO) 2.95 MIL/uL (4.0-5.2); WHITE BLOOD COUNT (AUTO) 10.7 K/uL (4.3-11.0)
[2016-08-01 06:48] LABS: CALCIUM, SERUM 8.3 mg/dL (8.5-10.1); CREATININE 2.6 mg/dL (0.6-1.3); MAGNESIUM 1.8 mg/dL (1.8-2.4); PHOSPHORUS 3.5 mg/dL (2.5-4.9); POTASSIUM 3.2 mmol/L (3.5-5.1)
--- NOTE | 2016-08-01 07:15 | NUR ---
RN INITIAL NOTE RECEIVED PT IN BED, SLEEPING. PT IS SINUS RHYTHM WITH BBB ON TELE MONITOR. PT HAS TRACH. LENORE #6, AC-16, TV-500, FI02-45, PEEP-0. RESPIRATIONS ARE EVEN AND UNLABORED. NO S/S OF RESPIRATORY DISTRESS OR SOB. SATING WELL. SWARTZ CATHETER DRAINING TO GRAVITY. GTUBE RUNNING GLYTROL AT 50ML/HR. SKIN IS WARM AND DRY TO TOUCH. IV SITE FLUSHED AND PATENT. SAFETY PRECAUTIONS IN PLACE. BED IN LOCKED, LOW POSITION, TWO SIDE RAILS UP. CALL LIGHT WITHIN REACH. WILL CONTINUE TO MONITOR.
[2016-08-01 08:00] VITALS: BP 95/40
[2016-08-01 09:00] VITALS: BP 95/40
[2016-08-01] MEDS: CARVEDILOL 3.125 MG TABLET GT SCH (09:00)
[2016-08-01] MEDS: AMIODARONE HCL 200 MG TABLET GT SCH (09:00)
[2016-08-01] MEDS ORDERED: methylPREDNISolone SOD SUCC 125 MG/2ML VIAL IV SCH (09:00)
[2016-08-01] MEDS: ASPIRIN 81 MG TAB.CHEW PO SCH (09:08)
[2016-08-01] MEDS: VIT B CMPLX 3/FA/VIT C/BIOTIN 1 TAB TABLET GT SCH (09:08)
[2016-08-01] MEDS: SERTRALINE HCL 25 MG TABLET GT SCH (09:08)
[2016-08-01] MEDS: CHOLESTYRAMINE/ASPARTAME 4 G/PKT PACKET GT SCH (09:08)
[2016-08-01] MEDS: BUMETANIDE INJ 0.25 MG/ML VIAL IV SCH (09:08)
[2016-08-01] MEDS: LACTOBACILLUS RHAMNOSUS GG 1 EACH CAP.SPRINK GT SCH (09:08)
[2016-08-01] MEDS: LINAGLIPTIN 5 MG TABLET GT SCH (09:09)
[2016-08-01] MEDS: PANTOPRAZOLE 40 MG/PACK PACK GT SCH (09:09)
[2016-08-01] MEDS: METOLAZONE 2.5 MG TABLET PO SCH (09:10)
[2016-08-01] MEDS: FERROUS SULFATE (325 MG) 325 MG/TAB TABLET GT SCH (09:11)
[2016-08-01] MEDS: HYDROGEL DRESSING 90 GM TUBE TP SCH (09:13)
[2016-08-01] MEDS: Z GUARD REMEDY 2 OZ OINT TP SCH (09:13)
[2016-08-01] MEDS: HEPARIN SODIUM, PORCINE 5000 UNITS/1 ML VIAL SQ SCH (09:13)
[2016-08-01] MEDS ORDERED: ASPI81TA2 PO (09:31)
[2016-08-01] MEDS ORDERED: AMIO200T7 GT (09:31)
[2016-08-01] MEDS ORDERED: ALLA266C2 TP (09:31)
[2016-08-01] MEDS ORDERED: Ipratropium Bromide NEB (09:31)
[2016-08-01] MEDS ORDERED: ALBUT2 NEB (09:31)
[2016-08-01] MEDS ORDERED: PRED20TA GT (09:31)
[2016-08-01] MEDS ORDERED: CARV3.122 GT (09:31)
[2016-08-01] MEDS ORDERED: INSU100I19 SQ (09:31)
[2016-08-01] MEDS ORDERED: Gel Dressing TP (09:31)
--- NOTE | 2016-08-01 14:30 | NUR ---
RN CLOSING NOTE PT DISCHARGED TO [facility]. CALLED REPORT TO DENISE. SWARTZ CATH AND IV SITE LEFT INTACT, PER HER REQUEST. 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
== END 2016-08-01 14:50 | DRG 870 ==
LOC: ER 12:52 → TELE 16:05 → ICU 07-13 05:03 → TELE-TD 07-16 11:56 → TELE1 07-19 09:05 → ICU 07-21 12:52 → TELE-TD 07-25 15:11 → TELE1 07-26 11:28
PROVIDERS: ADMIT Internal Medicine Nephrology; ATTEND Internal Medicine Nephrology
PROC: 5A1955Z Respiratory Ventilation, Greater than 96 Consecutive Hours (ICD-10-PCS; principal; 2016-07-12)
PROC: 0W993ZZ Drainage of Right Pleural Cavity, Percutaneous Approach (ICD-10-PCS; 2016-07-13)
PROC: 05H633Z Insertion of Infusion Device into Left Subclavian Vein, Percutaneous Approach (ICD-10-PCS; 2016-07-13)
PROC: 0W9B3ZZ Drainage of Left Pleural Cavity, Percutaneous Approach (ICD-10-PCS; 2016-07-19)
DX: A41.9 Sepsis, unspecified organism (principal); I21.4 Non-ST elevation (NSTEMI) myocardial infarction; J96.22 Acute and chronic respiratory failure with hypercapnia; N17.0 Acute kidney failure with tubular necrosis; J96.21 Acute and chronic respiratory failure with hypoxia; I50.23 Acute on chronic systolic (congestive) heart failure; J95.851 Ventilator associated pneumonia; I13.11 Hypertensive heart and chronic kidney disease without heart failure, with stage 5 chronic kidney disease, or end stage renal disease; Z99.11 Dependence on respirator [ventilator] status; E87.4 Mixed disorder of acid-base balance; N39.0 Urinary tract infection, site not specified; I13.0 Hypertensive heart and chronic kidney disease with heart failure and stage 1 through stage 4 chronic kidney disease, or unspecified chronic kidney disease; I25.10 Atherosclerotic heart disease of native coronary artery without angina pectoris; E11.22 Type 2 diabetes mellitus with diabetic chronic kidney disease; Z93.0 Tracheostomy status; K94.21 Gastrostomy hemorrhage; E78.5 Hyperlipidemia, unspecified; I48.0 Paroxysmal atrial fibrillation; E66.9 Obesity, unspecified; I25.5 Ischemic cardiomyopathy; I25.2 Old myocardial infarction; Y83.3 Surgical operation with formation of external stoma as the cause of abnormal reaction of the patient, or of later complication, without mention of misadventure at the time of the procedure; Y84.8 Other medical procedures as the cause of abnormal reaction of the patient, or of later complication, without mention of misadventure at the time of the procedure; E87.70 Fluid overload, unspecified; R65.20 Severe sepsis without septic shock; D63.8 Anemia in other chronic diseases classified elsewhere; N18.9 Chronic kidney disease, unspecified
CPT/HCPCS: 31720; 36415; 36569; 36600; 71010-TC; 71250-TC; 76942-TC; 80048-TC; 80053-TC; 80150; 80202-TC; 81000-TC; 82040-TC; 82272-TC; 82570-TC; 82728-TC; 82962-TC; 83540-TC; 83605-TC; 83735-TC; 84100-TC; 84300-TC; 84484-TC; 85025-TC; 85610-TC; 85730-TC; 87040-TC; 87070-TC; 87075-TC; 87081-TC; 87086-TC; 87102-TC; 87186-TC; 88305-TC; 88312-TC; 89051-TC; 93307-TC; 93970-TC; 94002-TC; 94003-TC; 94760-TC; 94762-TC; 99082-TC; A4216; A4606; A4623; A6248; A6402; A6403; J0278; J0282; J0692; J0770; J0885; J1644; J1650; J1815; J2060; J2405; J2543; J2930; J3370; J3475; J3480; J3490; J7030; J7040; J7050; J7060; Z7610